=== PATIENT | male | born 1975 | race Caucasian/White ===

== ENCOUNTER 2018-02-02 11:03 | Emergency (ER) | payer MEDICAID ==
[~2018-02-02] VITALS: Ht 165.1 cm; Wt 72.0 kg
[~2018-02-02 11:03] MED LIST: CLON-528 PO; QUET-1 PO; QUET300T2 PO; QUET50TA PO
[2018-02-02 11:20] VITALS: BP 121/85
[2018-02-02] MEDS ORDERED: NAPR-56 PO (12:09)
== END 2018-02-02 12:42 | disposition home or self-care (01) ==
LOC: ER 11:05
DX: M25.552 Pain in left hip (principal); F15.90 Other stimulant use, unspecified, uncomplicated; Z88.5 Allergy status to narcotic agent; Z88.8 Allergy status to other drugs, medicaments and biological substances; Z98.890 Other specified postprocedural states
CPT/HCPCS: 99282

== ENCOUNTER 2019-02-26 06:48 | Emergency (ER) | payer MEDICAID ==
[~2019-02-26] VITALS: Ht 165.1 cm; Wt 65.8 kg
[2019-02-26 07:03] VITALS: BP 126/91
== END 2019-02-26 07:49 | disposition home or self-care (01) ==
LOC: ER 06:49
DX: R11.2 Nausea with vomiting, unspecified (principal); F31.9 Bipolar disorder, unspecified; F20.9 Schizophrenia, unspecified; F15.90 Other stimulant use, unspecified, uncomplicated; Z98.890 Other specified postprocedural states; Z88.8 Allergy status to other drugs, medicaments and biological substances; Z79.899 Other long term (current) drug therapy
CPT/HCPCS: 99281

== ENCOUNTER 2019-04-22 19:50 | Emergency (ER) | payer MEDICAID ==
[~2019-04-22] VITALS: Ht 167.6 cm; Wt 70.0 kg
[2019-04-22] MEDS ORDERED: haloperidol lactate 5mg/ml inj IM ONE (20:00)
[2019-04-22] MEDS ORDERED: LORazepam 2 mg/ml vial IM ONE (20:00)
[2019-04-22] MEDS ORDERED: diphenhydrAMINE 50 mg/ml inj IM ONE (20:00)
[2019-04-22] MEDS ORDERED: normal saline 1000ML IV soln IVB ONE ×2 (20:10→21:35)
--- NOTE | 2019-04-22 20:15 | NUR ---
PATIENT EXTREMELY AGITATED RAMBLING NONSENSE, YELLING, CURSING AND VERBALLY THREATENING ER STAFF AND LAW ENFORCEMENT WHO ARE AT BEDSIDE. PATIENT IS IN 4 POINT RESTRAINTS AND UNDER DIRECT SUPERVISION OF LAW ENFORCEMENT. HX OF BIPOLAR AND SCHIZOPHENIA.
[2019-04-22 20:47] LABS: BASOPHILS # (AUTO) 0.1 X10'3 (0-0.2); BASOPHILS % (AUTO) 0.7 % (0-1); EOSINOPHILS # (AUTO) 0.1 X10'3 (0-0.9); EOSINOPHILS % (AUTO) 0.7 % (0-6); HEMATOCRIT 42.6 % (42.0-52.0); LYMPHOCYTES % (AUTO) 21.2 % (21-51); MEAN CORPUSCULAR HEMOGLOBIN 32.4 PG (27.0-31.0); MEAN CORPUSCULAR HGB CONC 35.2 g/dL (33.0-36.5); MEAN CORPUSCULAR VOLUME 92.2 FL (78-98); MEAN PLATELET VOLUME 8.3 FL (7.4-10.4); MONOCYTES % (AUTO) 10.2 % (2-12); NEUTROPHILS # (AUTO) 6.4 X10'3 (1.8-7.7); NEUTROPHILS % (AUTO) 67.2 % (42-75); PLATELET COUNT 252 X10'3 (140-440); RED BLOOD COUNT 4.62 X10'6 (4.70-6.10); RED CELL DISTRIBUTION WIDTH 13.4 % (11.5-14.5); WHITE BLOOD COUNT 9.5 X10'3 (4.5-11.0)
--- NOTE | 2019-04-22 21:00 | NUR ---
PATIENT RESTING COMFORTABLY AT THIS TIME AFTER MEDICATION INTERVENTION. ER STAFF ABLE TO OBTAIN LAB DRAW, URINE AND CT SCAN PERFORMED. PATIENT UNDER DIRECT SUPERVISION OF LAW ENFORMENT
[2019-04-22 21:04] LABS: ALANINE AMINOTRANSFERASE 71 U/L (12-78); ALBUMIN 3.7 G/DL (3.4-5.0); ALBUMIN/GLOBULIN RATIO 1.1 (1.1-1.5); ALKALINE PHOSPHATASE 75 IU/L (46-116); ANION GAP 12 (8-16); ASPARTATE AMINO TRANSFERASE 43 U/L (10-37); BILIRUBIN,TOTAL 0.5 MG/DL (0.1-1.0); BLOOD UREA NITROGEN 14 MG/DL (7-18); BUN/CREATININE RATIO 10.9 (5.4-32.0); CALCIUM 8.5 MG/DL (8.5-10.1); CHLORIDE 105 MMOL/L (99-107); CREATININE 1.28 MG/DL (0.60-1.10); GLUCOSE 86 MG/DL (70-104); POTASSIUM 3.2 MMOL/L (3.5-5.1); SODIUM 142 MMOL/L (135-145); TOTAL CARBON DIOXIDE 24.8 MMOL/L (24-32); TOTAL PROTEIN 7.1 G/DL (6.4-8.2); eGFR 62 ML/MIN
[2019-04-22 21:13] LABS: CKMB RELATIVE INDEX 0.7 RATIO (0-2.5); CREATINE KINASE 525 U/L (39-308)
[2019-04-22] MEDS ORDERED: potassium Cl 20 mEq SR tablet PO STA (21:22)
[2019-04-22 22:06] LABS: URINE AMPHETAMINE SCREEN POSITIVE (Neg); URINE BARBITUATE SCREEN NEGATIVE (Neg); URINE BENZODIAZEPINES SCREEN NEGATIVE (Neg); URINE CANNABINOID SCREEN NEGATIVE (Neg); URINE COCAINE SCREEN NEGATIVE (Neg); URINE METHADONE SCREEN NEGATIVE (Neg); URINE OPIATE SCREEN NEGATIVE (Neg); URINE PHENCYCLIDINE SCREEN NEGATIVE (Neg)
--- NOTE | 2019-04-22 23:03 | NUR ---
[facility] ADMINISTRATION DELAYED PER MD WAITING FOR PATIENT TO BE ALERT ENOUGH TO TAKE ORAL MEDICATION
[2019-04-22 23:34] LABS: CLARITY,URINE CLEAR (Clear); COLOR,URINE YELLOW (Yellow); GLUCOSE, URINE NEGATIVE (Neg); KETONES,URINE NEGATIVE (Neg); LEUKOCYTE ESTERASE ,URINE NEGATIVE (Neg); NITRITES, URINE NEGATIVE (Neg); OCCULT BLOOD,URINE NEGATIVE (Neg); PH,URINE 5.5 (4.8-8.0); PROTEIN,URINE NEGATIVE (Neg); UA COLLECTION TYPE CLN CATCH MIDSTREAM; UROBILINOGEN,URINE 0.2 E.U/dL (0.2-1.0)
[2019-04-23 01:15] VITALS: BP 128/76
== END 2019-04-23 01:27 ==
LOC: ER 19:51
DX: F23 Brief psychotic disorder (principal); E87.6 Hypokalemia; F15.10 Other stimulant abuse, uncomplicated; F20.9 Schizophrenia, unspecified; F31.9 Bipolar disorder, unspecified; Z86.19 Personal history of other infectious and parasitic diseases; Z98.890 Other specified postprocedural states; Z88.8 Allergy status to other drugs, medicaments and biological substances; Z79.899 Other long term (current) drug therapy
CPT/HCPCS: 36415; 70450; 80053; 80305; 80320; 81003; 82550; 82553; 84443; 85025; 93005; 96372; 99284; J1200; J1630; J2060; J7030

== ENCOUNTER 2019-07-04 16:54 | Emergency (ER) | payer MEDICAID ==
[~2019-07-04] VITALS: Ht 165.1 cm; Wt 71.7 kg
[2019-07-04] MEDS ORDERED: iohexol 350MG/ML 100ml bottle IV ONE (17:09)
--- NOTE | 2019-07-04 17:22 | NUR ---
PT REURNED FROM CT, PT PLACED BACK ON MONITOR.
[2019-07-04 18:04] LABS: PARTIAL THROMBOPLASTIN TIME 27 SECONDS (22-32)
[2019-07-04 18:11] LABS: ALANINE AMINOTRANSFERASE 48 U/L (12-78); ALBUMIN 3.4 G/DL (3.4-5.0); ALBUMIN/GLOBULIN RATIO 1.2 (1.1-1.5); ALKALINE PHOSPHATASE 91 IU/L (46-116); ANION GAP 4 (8-16); ASPARTATE AMINO TRANSFERASE 20 U/L (10-37); BILIRUBIN,TOTAL 0.3 MG/DL (0.1-1.0); BLOOD UREA NITROGEN 11 MG/DL (7-18); CHLORIDE 98 MMOL/L (99-107); CREATININE 0.92 MG/DL (0.60-1.10); GLUCOSE 88 MG/DL (70-104); POTASSIUM 3.8 MMOL/L (3.5-5.1); SODIUM 132 MMOL/L (135-145); TOTAL CARBON DIOXIDE 29.8 MMOL/L (24-32); TOTAL PROTEIN 6.2 G/DL (6.4-8.2); eGFR > 90 ML/MIN
[2019-07-04 18:12] VITALS: BP 127/81
[2019-07-04 18:21] LABS: CREATINE KINASE 154 U/L (39-308)
--- NOTE | 2019-07-04 18:28 | NUR ---
PT OFF TRAUMA STATUS PER DR MONTANO.
[2019-07-04] MEDS ORDERED: ketorolac tromethamine 15mg/ml inj. IV ONE (18:30)
[2019-07-04] MEDS ORDERED: morphine 2 MG/ML inj. syringe IV PRN (18:30)
[2019-07-04] MEDS ORDERED: normal saline 1000ML IV soln IVB ONE (18:30)
[2019-07-04 18:32] LABS: BASOPHILS % (AUTO) 0.6 % (0-1); EOSINOPHILS % (AUTO) 0.3 % (0-6); HEMATOCRIT 37.1 % (42.0-52.0); HEMOGLOBIN 13.3 g/dl (14.0-17.9); LYMPHOCYTES # (AUTO) 1.3 X10'3 (1.1-4.8); LYMPHOCYTES % (AUTO) 19.1 % (21-51); MEAN CORPUSCULAR HEMOGLOBIN 32.1 PG (27.0-31.0); MEAN CORPUSCULAR HGB CONC 35.9 g/dL (33.0-36.5); MEAN CORPUSCULAR VOLUME 89.4 FL (78-98); MEAN PLATELET VOLUME 8.3 FL (7.4-10.4); MONOCYTES # (AUTO) 0.6 X10'3 (0-0.9); MONOCYTES % (AUTO) 8.5 % (2-12); NEUTROPHILS # (AUTO) 4.9 X10'3 (1.8-7.7); NEUTROPHILS % (AUTO) 71.5 % (42-75); PLATELET COUNT 202 X10'3 (140-440); RED BLOOD COUNT 4.14 X10'6 (4.70-6.10); RED CELL DISTRIBUTION WIDTH 13.3 % (11.5-14.5); WHITE BLOOD COUNT 6.9 X10'3 (4.5-11.0)
== END 2019-07-04 19:07 ==
LOC: ER 16:54
DX: T71.162A Asphyxiation due to hanging, intentional self-harm, initial encounter (principal); S10.93XA Contusion of unspecified part of neck, initial encounter; S00.83XA Contusion of other part of head, initial encounter; F31.9 Bipolar disorder, unspecified; F20.9 Schizophrenia, unspecified; F15.90 Other stimulant use, unspecified, uncomplicated; Z98.890 Other specified postprocedural states; Z86.19 Personal history of other infectious and parasitic diseases; Z88.8 Allergy status to other drugs, medicaments and biological substances; Z79.899 Other long term (current) drug therapy; X83.8XXA Intentional self-harm by other specified means, initial encounter; Y93.89 Activity, other specified; Y92.89 Other specified places as the place of occurrence of the external cause; Y99.8 Other external cause status
CPT/HCPCS: 36415; 70498; 80053; 82550; 83874; 85025; 85610; 85730; 96374; 96375; 99284; J1885; J2270; J7030; Q9967; 99291

== ENCOUNTER 2022-06-23 15:37 | Emergency (ER) | payer MEDICAID ==
[~2022-06-23] VITALS: Ht 165.1 cm; Wt 72.7 kg
[2022-06-23 15:45] VITALS: BP 130/81
== END 2022-06-23 19:37 | disposition left against medical advice (07) ==
LOC: ER 15:39
DX: J02.9 Acute pharyngitis, unspecified (principal); Z53.21 Procedure and treatment not carried out due to patient leaving prior to being seen by health care provider

== ENCOUNTER 2023-03-08 16:24 | Inpatient (IN) | payer MEDICAID ==
[~2023-03-08] VITALS: Ht 165.1 cm; Wt 71.1 kg
[~2023-03-08 16:24] MED LIST changes: -QUET300T2 PO
[2023-03-08] MEDS ORDERED: TETanus/Pertussis (Acell)/Diphther VAC/PF (Tdap-Adult) 0.5ml syringe IMVAC ONE (17:10)
[2023-03-08 17:59] LABS: BASOPHILS % (AUTO) 0.3 % (0-1); EOSINOPHILS % (AUTO) 0 % (0-6); HEMATOCRIT 37.5 % (42.0-52.0); HEMOGLOBIN 13.1 g/dl (14.0-17.9); LYMPHOCYTES # (AUTO) 1.2 X10'3 (1.1-4.8); LYMPHOCYTES % (AUTO) 8.3 % (21-51); MEAN CORPUSCULAR HEMOGLOBIN 30.7 PG (27.0-31.0); MEAN CORPUSCULAR HGB CONC 34.9 g/dL (33.0-36.5); MEAN CORPUSCULAR VOLUME 87.7 FL (78-98); MEAN PLATELET VOLUME 8.7 FL (7.4-10.4); MONOCYTES # (AUTO) 1.1 X10'3 (0-0.9); MONOCYTES % (AUTO) 7.7 % (2-12); NEUTROPHILS % (AUTO) 83.7 % (42-75); PLATELET COUNT 227 X10'3 (140-440); RED BLOOD COUNT 4.28 X10'6 (4.70-6.10); RED CELL DISTRIBUTION WIDTH 13.2 % (11.5-14.5); WHITE BLOOD COUNT 14.3 X10'3 (4.5-11.0)
[2023-03-08 18:06] LABS: ALANINE AMINOTRANSFERASE 23 U/L (12-78); ALBUMIN 3.5 G/DL (3.4-5.0); ALBUMIN/GLOBULIN RATIO 1.3 (1.1-1.5); ALKALINE PHOSPHATASE 68 IU/L (46-116); ANION GAP 8 (8-16); ASPARTATE AMINO TRANSFERASE 19 U/L (10-37); BILIRUBIN,TOTAL 0.5 MG/DL (0.1-1.0); BLOOD UREA NITROGEN 9 MG/DL (7-18); BUN/CREATININE RATIO 9.9 (10.0-20.0); CALCIUM 8.1 MG/DL (8.5-10.1); CHLORIDE 100 MMOL/L (99-107); CREATININE 0.91 MG/DL (0.60-1.10); ETHANOL < 10 MG/DL (<10); GLUCOSE 91 MG/DL (70-104); POTASSIUM 3.3 MMOL/L (3.5-5.1); SODIUM 133 MMOL/L (135-145); TOTAL CARBON DIOXIDE 25.1 MMOL/L (24-32); TOTAL PROTEIN 6.2 G/DL (6.4-8.2); eCRCL 89 ML/MIN; eGFR 90 ML/MIN
[2023-03-08 19:21] LABS: URINE AMPHETAMINE SCREEN NEGATIVE (Neg); URINE BARBITUATE SCREEN NEGATIVE (Neg); URINE BENZODIAZEPINES SCREEN POSITIVE (Neg); URINE CANNABINOID SCREEN NEGATIVE (Neg); URINE COCAINE SCREEN NEGATIVE (Neg); URINE METHADONE SCREEN NEGATIVE (Neg); URINE OPIATE SCREEN NEGATIVE (Neg); URINE PHENCYCLIDINE SCREEN NEGATIVE (Neg)
[2023-03-08] MEDS ORDERED: haloperidol lactate 5mg/ml inj IM ONE (21:30)
[2023-03-08] MEDS: normal saline 1000ml 1,000 ML IV SCH (21:30)
[2023-03-08] MEDS ORDERED: LIDOcaine 1% W/epiNEPHrine 1:200,000 10ml vial IJ ONE (22:20)
[2023-03-08] MEDS ORDERED: morphine 10mg/ml inj. IV ONE (22:25)
[2023-03-08] MEDS ORDERED: ondansetron/PF 4mg/2ml inj IV ONE (22:25)
[2023-03-08] MEDS ORDERED: LIDOcaine 1% W/epiNEPHrine 1:100,000 20ml vial IJ ONE (22:30)
--- NOTE | 2023-03-09 01:05 | NUR ---
Received pt from [facility], pt has hx of schizaffective. Pt has been hearing voices through his "car ventilation system" to harm himself. Pt put his hand through a window and received 26 davon, he also reported that he had been banging his head on the wall. Pt currently denies SI.
[2023-03-09] MEDS: normal saline 1000ml 1,000 ML IV SCH ×2 (01:30→05:30)
--- NOTE | 2023-03-09 02:50 | NUR ---
Pt irritated that he cannot fall asleep. Provider notified and orders received.
[2023-03-09] MEDS ORDERED: mirtazapine 15mg tablet PO ONE (03:00)
[2023-03-09] MEDS ORDERED: zolpidem 5mg tablet PO ONE (03:00)
[2023-03-09] MEDS ORDERED: OLANZapine 2.5MG tablet PO ONE (03:00)
[2023-03-09] MEDS ORDERED: olanzapine 10mg tablet PO ONE (03:10)
[2023-03-09 03:16] LABS: THYROID STIMULATING HORMONE 1.47 ulU/ml (0.34-4.50)
--- NOTE | 2023-03-09 03:47 | NUR ---
Packet faxed to [facility]
--- NOTE | 2023-03-09 06:31 | NUR ---
Patient sleeping supine. Respirations equal and nonlabored. No distress observed. Continue to monitor.
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
[2023-03-09] MEDS ORDERED: OLAN5TAB5 PO (07:59)
--- NOTE | 2023-03-09 08:30 | NUR ---
Patient receiving last dose of Ancef. Patient was calm and cooperative. No distress observed at this time. Continue to monitor.
[2023-03-09] MEDS: ceFAZolin/D5W- 1GM premix 50 ML IV SCH ×2 (08:33)
[2023-03-09] MEDS ORDERED: QUET300T2 PO (09:38)
--- NOTE | 2023-03-09 10:19 | NUR ---
Patient ambulatory, steady gait to BR. No distress observed. Continue to monitor.
--- NOTE | 2023-03-09 10:59 | NUR ---
Patient has his pit manager at bedside. No distress observed at this time. Continue to monitor.
--- NOTE | 2023-03-09 11:20 | NUR ---
OSMAR, Elinor, evaluating patient. No distress observed. Continue to monitor.
--- NOTE | 2023-03-09 12:20 | NUR ---
Patient has another member from his judaism visiting. No distress observed. continue to monitor.
--- NOTE | 2023-03-09 13:30 | NUR ---
Patient asked RN to remove his I.V. RN advised patient she would in a few minutes. Then another staff member walked into the room and RN and staff were working out a problem. Patient came out of his room and stating he was going to take out his own I.V. Heplock. RN advised him not to take it out. Patient then threatened to walk out and have somebody else remove his heplock. RN then removed his heplock. Patient attempting to up oning RN asking her if she has ever felt suicidal and complaining of his hard life. RN explained to patient you have no idea what other have been through so please don't maintenance technician them. Continue to monitor.
--- NOTE | 2023-03-09 14:05 | NUR ---
Patient appears to be sleeping. Respirations are equal and nonlabored. Continue to monitor.
[2023-03-09] MEDS ORDERED: ESZO2TAB31 PO (14:32)
[2023-03-09] MEDS ORDERED: MIRT-92 PO (14:32)
[2023-03-09] MEDS ORDERED: GABA300C PO (14:32)
--- NOTE | 2023-03-09 16:11 | NUR ---
Patient laying in bed. No distress observed. Continue to monitor.
[2023-03-09] MEDS ORDERED: magnesium hydroxide 30ml (MOM) UD suspension PO ONE (18:40)
[2023-03-09] MEDS: hydrOXYzine 25 MG tablet PO PRN (18:52)
--- NOTE | 2023-03-09 18:56 | NUR ---
Patient pacing and feeling very anxious. RN gave patient 50 mg Atarax. Patient declined T.V. Continue to monitor.
[2023-03-09] MEDS ORDERED: diphenhydrAMINE 50 mg/ml inj IM ONE (19:05)
[2023-03-09] MEDS ORDERED: haloperidol lactate 5mg/ml inj IM ONE (19:05)
[2023-03-09] MEDS ORDERED: LORazepam 2 mg/ml vial IM ONE (19:05)
--- NOTE | 2023-03-09 19:45 | NUR ---
0 Patient started banging his head against the wall over and over again placing large dents in the sheet rock. RN pulling patient away from the wall several times and called Security stat to ED OF. Patient also hit the wall with his hand. Patient was taken down by ED Staff in his own bed and patient was restrained. RN ran and got Dr. Sosa who saw patient and ordered I.M. B52. Security and ED staff at bedside. Patient is breathing fast and having an anxiety attack. RN fanned patient and Tech placed an ice pack on patient's forehead. Patient already had a red mckenzie on his forehead prior to hitting his head. Patient now has a large hematoma to forehead which is being iced. Patient's hands became numb due to him breathing so fast. RN did undo patient's right wrist restraint and then placed it back on not as tight. 1949 patient is past his anxiety attack and is now calm. Patient spoke to his mother on the phone for a couple of minutes. 1954 RN to remove bilateral leg restraints. Will continue to monitor.
--- NOTE | 2023-03-09 21:03 | NUR ---
Patient sleeping supine. Respirations equal and nonlabored. No distress observed. Continue to monitor.
[2023-03-09] MEDS: quetiapine fumarate ER 300mg tablet PO SCH (21:04)
[2023-03-09] MEDS: olanzapine 10mg tablet PO SCH (21:05)
[2023-03-09] MEDS: mirtazapine 15mg tablet PO SCH (21:05)
[2023-03-09] MEDS: gabapentin 300mg capsule PO SCH (21:05)
--- NOTE | 2023-03-09 23:09 | NUR ---
Patient sleeping supine. Respirations equal and nonlabored. No distress observed. Continue to monitor.
--- NOTE | 2023-03-10 01:17 | NUR ---
Patient sleeping on his left side. Respirations nonlabored. No distress observed. Continue to monitor.
--- NOTE | 2023-03-10 03:56 | NUR ---
Patient sleeping on his right side. Nonlabored respirations. No distress observed. Continue to monitor.
--- NOTE | 2023-03-10 05:26 | NUR ---
Patient continues to sleep supine. Respirations equal and nonlabored. No distress observed. Continue to monitor.
--- NOTE | 2023-03-10 06:30 | NUR ---
Pt is lying in bed on his back, he appears to be sleeping.
--- NOTE | 2023-03-10 08:03 | NUR ---
Autumn FERRO from [facility] called to ask how the patient is doing. She reports that she had seen him and made some med changes as Seroquel did not seem to be working. She started him on olanzapine. Autumn reports that the patient is very paranoid of law enforcement.
--- NOTE | 2023-03-10 08:30 | NUR ---
Pt did not wake up to eat his breakfast. Pt is currently sleeping on his back.
--- NOTE | 2023-03-10 10:05 | NUR ---
PT IS LAYING IN BED ASLEEP, PTS BREATHING EVEN, UNLABORED. NO NEEDS AT THIS TIME.
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
--- NOTE | 2023-03-10 12:59 | NUR ---
Pt is awake and sitting up. Pt declined meatloaf and mashed potatoes on lunch tray. Pt ate his yogurt. Pt is paranoid. Pt asked if we had anymore food that is sealed. Pt provided with jello, applesauce and more sealed snacks.
--- NOTE | 2023-03-10 13:21 | NUR ---
PT IS IN BED ASLEEP.
--- NOTE | 2023-03-10 14:06 | NUR ---
Anabelal from the [facility] office called to report that pt has been accepted upstairs on [facility].
--- NOTE | 2023-03-10 15:45 | NUR ---
Pt transferred upstairs to [facility] via w/c accompanied by [facility] discharge door operator and security, all belongings sent with the patient.
[2023-03-10] MEDS ORDERED: loperamide 2mg capsule PO PRN (16:00)
[2023-03-10] MEDS ORDERED: acetaminophen 325mg tablet PO PRN ×2 (16:00)
[2023-03-10] MEDS ORDERED: mag hydrox/Alum hydrox/simeth 30ml oral suspension PO PRN (16:00)
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
[2023-03-10 16:20] VITALS: BP 117/91; PULSE 112; RESP 16; TEMP 98.6; O2SAT 97
[2023-03-10 16:45] VITALS: RESP 18; O2SAT 97
[2023-03-10 19:00] VITALS: BP 124/92; PULSE 84; RESP 18; TEMP 98.4; O2SAT 95
[2023-03-10] MEDS: hydrOXYzine 25 MG tablet PO PRN (19:08)
[2023-03-10] MEDS ORDERED: OLANZapine **IM** 10 mg inj. IM ONE (19:21)
[2023-03-10] MEDS: gabapentin 300mg capsule PO SCH (19:57)
[2023-03-10] MEDS: olanzapine 10mg tablet PO SCH (19:58)
[2023-03-10] MEDS: quetiapine fumarate ER 300mg tablet PO SCH (19:58)
[2023-03-10] MEDS: mirtazapine 15mg tablet PO SCH (19:58)
[2023-03-10] MEDS ORDERED: zolpidem 5mg tablet PO SCH (21:00)
--- NOTE | 2023-03-11 00:11 | NUR ---
Nursing Progress Note: Problem: Pt admitted to [facility] for Behavioral health today on 5150 for DTS from our ER. Pt reported suicidal ideation , punched hands through a window, and hit his head against a refrigerator. Pt has lacerations with 28 davon present on his right forearm, area was cleaned with normal saline, Xeroform and non adherent dressing placed, and wrapped with gauze. Pictures were obtained and placed in pt's chart and a wound care consult was placed per KASIE Uribe. Pt. also has a bruise in the middle of his forehead. Pt reports worsening voices the past 10-12 weeks in which he is actively trying to make stop. Although he does not want to harm himself, "I understand why people with voices kill themselves; to make it stop." He is seeking help. Pt has history of PTSD, schizophrenia, bipolar and antisocial personality disorder. Interventions: Maintained a safe and supportive environment, provided clear and simple instructions, attempted to orient to reality, provided active listening and positive encouragement, encouraged participation on the unit, and maintained Q 15min safety checks. Response: Patient is pleasant but impulsive behavior presented; patient c/o anxiety and was provided PRN Atarax. About 15mins later patient approached CRN and explained he wanted to harm himself; he required staff to physically intervene to prevent him from hitting himself or hitting his head. He continuously repeated "I just want to bash my fucking head in." KASIE Clay notified and Zyprexa 10mg IM provided. Patient reported constant AH and he only wants to cause harm to himself to get the voices to stop. Staff stayed with the patient until he was able to relax; his wound DSG was changed by CRN d/t the DSG falling off. Patient observed sleeping and does not appear to be having difficulty. Plan: Patient requires interruption of current crisis and possible medication adjustment in a safe and therapeutic environment.
[2023-03-11 07:00] VITALS: RESP 16; O2SAT 98
[2023-03-11 07:53] VITALS: BP 118/78; PULSE 90; RESP 12; TEMP 98.4; O2SAT 95
--- NOTE | 2023-03-11 12:21 | NUR ---
PRESSURE ULCER EDUCATION: DEFINITION: A pressure ulcer is an area of skin that breaks down when you stay in one position too long. The constant pressure against the skin reduces the blood flow to that area and the affected tissue dies. CAUSES: "Being bedridden or in a wheelchair "Fragile skin "Having a chronic condition, such as diabetes or vascular disease "Inability to move certain parts of your body without assistance "Older age "Incontinence of urine or stool SYMPTOMS: "A reddened area that DOES NOT turn white when pressed on - this can be the beginning of a pressure ulcer "A blister, deep sore or a crater - these can be advanced pressure ulcers FIRST AID: "Relieve the pressure on this area "Keep the area clean and dry "Call your primary doctor if you see any of the above symptoms "DO NOT massage the area "DO NOT use a donut shaped or ring shaped pillow- these actually interfere with the blood flow and cause complications PREVENTION: "Check for pressure ulcers everyday "Change position at least every two hours to relieve pressure "Use items that help relieve pressure- pillows, sheepskin, foam padding, and powders. "Keep skin clean and dry "Eat healthy well balanced meals "Exercise daily IF YOU SEE ANY OF THESE SYMPTOMS WHILE IN THE HOSPITAL - TELL YOUR NURSE IMMEDIATELY. IF YOU SEE ANY OF THESE SYMPTOMS WHILE AT HOME OR HAVE ANY QUESTIONS OR CONCERNS ABOUT PRESSURE ULCERS - CALL YOUR PRIMARY DOCTOR IMMEDIATELY. Addendum: 03/11/23 at 1222 by Lisa Calhoun RN Amended: Links added.
[2023-03-11] MEDS ORDERED: olanzapine 10mg tablet PO STA (12:22)
[2023-03-11] MEDS: magnesium hydroxide 30ml (MOM) UD suspension PO PRN (12:29)
[2023-03-11 14:10] LABS: BASOPHILS % (AUTO) 0.5 % (0-1); EOSINOPHILS % (AUTO) 0.6 % (0-6); HEMATOCRIT 43.1 % (42.0-52.0); HEMOGLOBIN 15.2 g/dl (14.0-17.9); LYMPHOCYTES # (AUTO) 1.5 X10'3 (1.1-4.8); LYMPHOCYTES % (AUTO) 18.9 % (21-51); MEAN CORPUSCULAR HEMOGLOBIN 30.9 PG (27.0-31.0); MEAN CORPUSCULAR HGB CONC 35.3 g/dL (33.0-36.5); MEAN CORPUSCULAR VOLUME 87.6 FL (78-98); MEAN PLATELET VOLUME 8.5 FL (7.4-10.4); MONOCYTES # (AUTO) 0.7 X10'3 (0-0.9); MONOCYTES % (AUTO) 9.5 % (2-12); NEUTROPHILS # (AUTO) 5.5 X10'3 (1.8-7.7); NEUTROPHILS % (AUTO) 70.5 % (42-75); PLATELET COUNT 227 X10'3 (140-440); RED BLOOD COUNT 4.92 X10'6 (4.70-6.10); RED CELL DISTRIBUTION WIDTH 13.1 % (11.5-14.5); WHITE BLOOD COUNT 7.8 X10'3 (4.5-11.0)
[2023-03-11 14:42] LABS: ALBUMIN 3.4 G/DL (3.4-5.0); ANION GAP 10 (8-16); BLOOD UREA NITROGEN 20 MG/DL (7-18); BUN/CREATININE RATIO 17.2 (10.0-20.0); CALCIUM 9.1 MG/DL (8.5-10.1); CHLORIDE 105 MMOL/L (99-107); CREATININE 1.16 MG/DL (0.60-1.10); GLUCOSE 126 MG/DL (70-104); POTASSIUM 3.9 MMOL/L (3.5-5.1); SODIUM 143 MMOL/L (135-145); TOTAL CARBON DIOXIDE 28.5 MMOL/L (24-32); eCRCL 70 ML/MIN; eGFR 68 ML/MIN
[2023-03-11] MEDS: hydrOXYzine 25 MG tablet PO PRN (15:56)
[2023-03-11] MEDS ORDERED: LORazepam 2 mg/ml vial ONE (16:06)
[2023-03-11] MEDS ORDERED: haloperidol lactate 5mg/ml inj ONE (16:07)
[2023-03-11] MEDS ORDERED: diphenhydrAMINE 50 mg/ml inj ONE (16:08)
--- NOTE | 2023-03-11 17:32 | NUR ---
Malnutrition consult: Pt admit for suicidal behavior with attempted self injury and a hx of multiple suicide attempt of which two prior attempts resulted in required life support per H&P. Per RN malnutrition screen pt reports 14-23 pound weight loss and a decreased PO intake/ appetite. Scaled wt this admit of 68kg (150 pounds) and only reliable scaled wt hx in EMR of 71.66kg (158 pounds) on 07/05/19 indicate about 8 pound wt loss in 5 years though not not clear due to missing reliable information. Unable to talk to RN, even though attempt was made to obtain information on pt's appearance. Pt does not have edema nor weakness. Pt is currently on a regular diet with prepackage food only request and bottled water; communicated with dietary. PO intake ~16%x 3 meals including two refusals (noted not package meals); notified dietary. Due to no significant wt loss indicated in EMR, no edema, and no weakness pt does not meet a minimum of two malnutrition criteria at this time. Will continue to monitor for signs of malnutrition. Addendum: 03/11/23 at [address] Amended: Links added.
--- NOTE | 2023-03-11 17:43 | NUR ---
Nursing Progress Note: Problem: Pt admitted to [facility] for [facility] health today on 5150 for DTS from our ER. Pt reported suicidal ideation, punched hands through a window, and hit his head against a refrigerator. Pt has lacerations with 28 davon present on his right forearm, area was cleaned with normal saline, Xeroform and non-adherent dressing placed, and wrapped with gauze. Pictures were obtained and placed in pt.s chart and a wound care consult was placed per KASIE Uribe. Pt. also has a bruise in the middle of his forehead. Pt reports worsening voices the past 10-12 weeks in which he is actively trying to make stop. Although he does not want to harm himself, "I understand why people with voices kill themselves; to make it stop." He is seeking help. Pt has history of PTSD, schizophrenia, bipolar and antisocial personality disorder. Interventions: Maintained a safe and supportive environment, provided clear and simple instructions, attempted to orient to reality, provided active listening and positive encouragement, encouraged participation on the unit, and maintained Q 15min safety checks. Response: Patient sleeping in bed at change of shift. Patient does not get up and eat breakfast. He states that he just wants to . Patient later stated that he did not want to get up for lunch, because if he gets up he will want to bang his head against the wall. Patient refused lunch as it was not a boxed lunch. RN brought patient snacks and bottled water for which he was pleased. Patient reports having his food mixed with medications in the not too distant past, so he is paranoid about his food. Patient was given Zyprexa 10 mg p.o. in late morning and went to sleep. Patient awakened and wanted medication for anxiety. Atarax 50 mg was given prn. Texted KASIE Clay that I needed more meds, when patient started banging his head against the wall. RN took him away from wall and attempted to hold him and comfort patient. Security was paged and came and assisted in calming patient. Haldol 10 mg, Ativan 2 mg and Benadryl 50 mg IM. Patient was taken back to his room where he was deep breathing and attempting to calm down. Patient had psychomotor agitation and his legs were constantly moving during this whole event. Patient kept saying I have to get up and bang my head. Patient has about a quarter sized reddened area that was bleeding during self-injurious behaviors. Patient states that he is tired of living like this with the voices and them telling him to kill himself. Patient reports that he is a Jehovahs Witness and talks about this during 1:1. RN sat with patient for approximately one hour until he was calling his mother on the phone, and was calm. Patient has helmet in his room on shelf if he should need it again. Patient remained pleasant throughout the day, is medication compliant. Patient was given MOM and prune juice for constipation x 4 days. Plan: Patient requires interruption of current crisis and possible medication adjustment in a safe and therapeutic environment.
[2023-03-11 19:17] VITALS: BP 105/65; PULSE 80; RESP 14; TEMP 98.1; O2SAT 98
[2023-03-11] MEDS: gabapentin 300mg capsule PO SCH (20:04)
[2023-03-11] MEDS: olanzapine 10mg tablet PO SCH (20:04)
[2023-03-11] MEDS: mirtazapine 15mg tablet PO SCH (20:04)
[2023-03-11] MEDS: quetiapine fumarate ER 300mg tablet PO SCH (20:04)
--- NOTE | 2023-03-12 01:21 | NUR ---
Nursing Progress Note: Problem: Pt admitted to [facility] for [facility] health today on 5150 for DTS from our ER. Pt reported suicidal ideation , punched hands through a window, and hit his head against a refrigerator. Pt has lacerations with 28 davon present on his right forearm, area was cleaned with normal saline, Xeroform and non adherent dressing placed, and wrapped with gauze. Pictures were obtained and placed in pt's chart and a wound care consult was placed per KASIE Uribe. Pt. also has a bruise in the middle of his forehead. Pt reports worsening voices the past 10-12 weeks in which he is actively trying to make stop. Although he does not want to harm himself, "I understand why people with voices kill themselves; to make it stop." He is seeking help. Pt has history of PTSD, schizophrenia, bipolar and antisocial personality disorder. Interventions: Maintained a safe and supportive environment, provided clear and simple instructions, attempted to orient to reality, provided active listening and positive encouragement, encouraged participation on the unit, and maintained Q 15min safety checks. Response: Patient is pleasant and cooperative with care; compliant with medication. Patient continues to express AH that want him to cause harm to himself; he describes his voice as constantly tormenting him. Patient self-isolated to his room and no self-harm events this shift. Wound DSGs to RFA and forehead CDI. Patient was provided packaged drinks and snacks prior to bed; observed sleeping and does not appear to be having difficulty. Plan: Patient requires interruption of current crisis and possible medication adjustment in a safe and therapeutic environment.
--- NOTE | 2023-03-12 02:45 | NUR ---
TOBACCO DRYING MACHINE OPERATOR documentation: I have reviewed all interventions, assessments performed and documented by Daisy ANGULO.
[2023-03-12 07:00] VITALS: BP 123/64; PULSE 92; RESP 16; TEMP 98.3; O2SAT 94
[2023-03-12] MEDS ORDERED: olanzapine 10mg tablet PO SCH (08:00)
[2023-03-12] MEDS: olanzapine 10mg tablet PO SCH ×3 (08:03→18:15)
--- NOTE | 2023-03-12 12:21 | NUR ---
TC to RN with recommendation for Ensure Enlive TID given poor acceptance of food and pt requesting prepackaged foods. Order pending at this time. Per RN pt likes Bran and bananas, d/w dietary. RN encouraged to inform RD of any pt preferences that can be honored in hopes of optimizing PO intake. Noted LBM 03/07 per EMR. Pt with PRN MoM only given 03/11 per EMR and started on routine Miralax HS today. Pt to begin receiving power pudding WB as well. Will continue to follow closely and make recommendations as appropriate. Recommendations: 1) Continue regular diet; prepackaged foods per diet order 2) Ensure Enlive TID, d/w RN 03/12 3) Encourage PO intake and honor food preferences as able 4) Routine and PRN bowel care; power pudding WB 5) Weekly scaled weight Addendum: 03/12/23 at [address] Amended: Links added.
[2023-03-12] MEDS ORDERED: polyethylene glycol 3350 17gm powd pack PO ONE (12:25)
[2023-03-12] MEDS: lactose-reduced food (Ensure Enlive) - 237ml bottle PO SCH ×2 (13:00→18:15)
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
[2023-03-12 18:15] LABS: HBSAG SCREEN Negative (Negative); HEP B CORE AB, IGM Negative (Negative); HEP B CORE AB, TOT Negative (Negative)
[2023-03-12] MEDS: magnesium hydroxide 30ml (MOM) UD suspension PO PRN (18:15)
[2023-03-12] MEDS ORDERED: LORazepam 1 MG tablet PO STA (18:40)
[2023-03-12] MEDS: hydrOXYzine 25 MG tablet PO PRN (18:41)
[2023-03-12 19:33] VITALS: BP 122/85; PULSE 77; RESP 19; TEMP 97; O2SAT 97
[2023-03-12] MEDS: quetiapine fumarate ER 300mg tablet PO SCH (21:21)
[2023-03-12] MEDS: gabapentin 300mg capsule PO SCH (21:21)
[2023-03-12] MEDS: polyethylene glycol 3350 17gm powd pack PO SCH (21:21)
[2023-03-12] MEDS: OLANZAPINE 5 MG TABLET PO SCH (21:21)
[2023-03-12] MEDS: mirtazapine 15mg tablet PO SCH (21:21)
--- NOTE | 2023-03-13 04:38 | NUR ---
Nursing Progress Note: Problem: Pt admitted to [facility] for [facility] health today on 5150 for DTS from our ER. Pt reported suicidal ideation , punched hands through a window, and hit his head against a refrigerator. Pt has lacerations with 28 davon present on his right forearm, area was cleaned with normal saline, Xeroform and non adherent dressing placed, and wrapped with gauze. Pictures were obtained and placed in pt's chart and a wound care consult was placed per KASIE Uribe. Pt. also has a bruise in the middle of his forehead. Pt reports worsening voices the past 10-12 weeks in which he is actively trying to make stop. Although he does not want to harm himself, "I understand why people with voices kill themselves; to make it stop." He is seeking help. Pt has history of PTSD, schizophrenia, bipolar and antisocial personality disorder. Interventions: Maintained a safe and supportive environment, provided clear and simple instructions, attempted to orient to reality, provided active listening and positive encouragement, encouraged participation on the unit, and maintained Q 15min safety checks. Response: Patient is pleasant and cooperative with care; compliant with medication. PRN Atarax and Ativan were provided for anxiety. Patient continues to express CAH, SI and paranoia; he was able to contract for safety this shift by asking staff for help when he had feelings for self-harming. Patient's wound DSG to RFA was changed this shift; wound appeared well approximated with minimal drainage noted. No s/s of infection and [address] Patient briefly walked out in the hallway and talked on the phone with his mom this shift. He was provided HS snack prior to shift; observed sleeping and does not appear to be having difficulty. Plan: Patient requires interruption of current crisis and possible medication adjustment in a safe and therapeutic environment.
--- NOTE | 2023-03-13 04:55 | NUR ---
FARM WORKER documentation: I have reviewed all interventions, assessments performed and documented by Daisy ANGULO
[2023-03-13 07:00] VITALS: RESP 16; O2SAT 94
[2023-03-13 08:00] VITALS: BP 105/69; PULSE 87; RESP 16; TEMP 97.6; O2SAT 98
[2023-03-13] MEDS: lactose-reduced food (Ensure Enlive) - 237ml bottle PO SCH ×3 (08:00→18:00)
[2023-03-13] MEDS: olanzapine 10mg tablet PO SCH ×3 (09:15→18:04)
[2023-03-13] MEDS: docusate sod 100mg capsule PO PRN (12:42)
[2023-03-13] MEDS: magnesium hydroxide 30ml (MOM) UD suspension PO PRN (12:42)
--- NOTE | 2023-03-13 17:49 | NUR ---
Nursing Progress Note: Problem: Pt admitted to [facility] today on 5150 for DTS from our ER. Pt reported suicidal ideation, punched hands through a window, and hit his head against a refrigerator. Pt has lacerations with 28 davon present on his right forearm, area was cleaned with normal saline, Xeroform and non-adherent dressing placed, and wrapped with gauze. Pictures were obtained and placed in pt.s chart and a wound care consult was placed per KASIE Uribe. Pt. also has a bruise in the middle of his forehead. Pt reports worsening voices the past 10-12 weeks in which he is actively trying to make stop. Although he does not want to harm himself, "I understand why people with voices kill themselves; to make it stop." He is seeking help. Pt has history of PTSD, schizophrenia, bipolar and antisocial personality disorder. Interventions: Maintained a safe and supportive environment, provided clear and simple instructions, attempted to orient to reality, provided active listening and positive encouragement, encouraged participation on the unit, and maintained Q 15min safety checks. Response: Patient sleeping in bed at change of shift. He declined breakfast and lunch today, but was compliant with medications. He reported that he just wasnt hungry, but hes got paranoia about food right now. 1:1 at bedside later in the afternoon. Patient says that the Zyprexa has really helped and the voices are better, Im not feeling like bashing my head in right now. Im in a good place with my life right now. Not doing crazy stupid stuff anymore. Its just these damn commands in my head. Hes isolated to his room today. Patient is pleasant and cooperative. Still no BM. New order for Colace 100mg BID which was given along with MOM. Patients wound left open to air today per his request. Plan: Patient requires interruption of current crisis and possible medication adjustment in a safe and therapeutic environment.
[2023-03-13 19:00] VITALS: RESP 14; O2SAT 97
[2023-03-13 19:30] LABS: LORAZEPAM (ATIVAN) <10 ng/mL (50 - 240)
[2023-03-13 20:00] VITALS: BP 123/88; PULSE 87; RESP 14; TEMP 97.8; O2SAT 97
[2023-03-13] MEDS: polyethylene glycol 3350 17gm powd pack PO SCH (20:10)
[2023-03-13] MEDS: gabapentin 300mg capsule PO SCH (20:11)
[2023-03-13] MEDS: mirtazapine 15mg tablet PO SCH (20:11)
[2023-03-13] MEDS: quetiapine fumarate ER 300mg tablet PO SCH (20:11)
[2023-03-13] MEDS: OLANZAPINE 5 MG TABLET PO SCH (20:12)
--- NOTE | 2023-03-14 04:31 | NUR ---
Nursing Progress Note: Delfino Problem: Pt admitted to [facility] today on 5150 for DTS from our ER. Pt reported suicidal ideation, punched hands through a window, and hit his head against a refrigerator. Pt has lacerations with 28 davon present on his right forearm, area was cleaned with normal saline, Xeroform and non-adherent dressing placed, and wrapped with gauze. Pictures were obtained and placed in pt.s chart and a wound care consult was placed per KASIE Uribe. Pt. also has a bruise in the middle of his forehead. Pt reports worsening voices the past 10-12 weeks in which he is actively trying to make stop. Although he does not want to harm himself, "I understand why people with voices kill themselves; to make it stop." He is seeking help. Pt has history of PTSD, schizophrenia, bipolar and antisocial personality disorder. Interventions: Maintained a safe and supportive environment, provided clear and simple instructions, attempted to orient to reality, provided active listening and positive encouragement, encouraged participation on the unit, and maintained Q 15min safety checks. Response: Upon shift patient was observed in room sitting on bedside. During 1:1, patient admits to hearing voices but states they are very subtle and not like they use to be. Patient admits to wanting to go to sleep forever, when feeling down. Patient denies going in to TV room due to being anti-social and isolating self. Patient only socializes with friends and family. Patient states his plan is to stay where he has been stay but doesnt want to be like this or hurt anyone. Patient received shower this shift. Patient c/o constipation, this nurse notified MD and MD ordered mag citrate for tomorrow 03/14 @ 1100 due to patient having visitors before then. Patient continues to be paranoid about drinking/eating anything that is not sealed. Patient states its not personal, please dont be upset I dont trust the government. Patient currently in bed with eyes closed. No obvious distress to note. Plan: Patient requires interruption of current crisis and possible medication adjustment in a safe and therapeutic environment.
[2023-03-14 07:00] VITALS: RESP 16; O2SAT 94
[2023-03-14 08:00] VITALS: BP 111/75; PULSE 70; RESP 12; TEMP 97.5; O2SAT 99
[2023-03-14] MEDS: lactose-reduced food (Ensure Enlive) - 237ml bottle PO SCH ×3 (08:00→18:00)
[2023-03-14] MEDS: olanzapine 10mg tablet PO SCH ×3 (09:53→16:54)
[2023-03-14] MEDS ORDERED: magnesium citrate 296ml oral solution PO ONE (11:00)
[2023-03-14] MEDS: magnesium hydroxide 30ml (MOM) UD suspension PO PRN (13:24)
[2023-03-14] MEDS: hydrOXYzine 25 MG tablet PO PRN (15:12)
[2023-03-14] MEDS ORDERED: QUEtiapine 25mg tablet PO STA (15:28)
[2023-03-14] MEDS ORDERED: LORazepam 1 MG tablet PO ONE (15:30)
--- NOTE | 2023-03-14 15:30 | NUR ---
S/R Initiation (Y=yes; N=no) Date Seclusion/Behavioral Restraint Episode Began:[03/14/23] Time Seclusion/Behavioral Restraint Episode Began:[1530] Type of Restraint(Document Y for the type utilized) mechanical-4 point:[Y] physical hold:[Y] seclusion:[] Behavior Necessitating Behavioral Restraint/Seclusion(Document Y for DTS and/or DTO). Danger to self:[Y] Danger to others:[] Alternatives Attempted(Document Y for the alternatives attempted). Decrease stimuli:[] Diversional activities:[] Verbal limit setting:[] Medication:[Y] Reality orientation:[] Show of support:[Y] Problem solving:[] De-escalation:[] Food and fluids:[Y] Increased observation:[] Other:[] Behavioral Description(narrative of circumstances that led to use of S/R):[At 1512 pt given Atarax 50mg PRN for anxiety. This nurse observed pt stomping feet and pacing back and forth. Notified KASIE Martinez. At 1520 Michelle, assessed pt and ordered Seroquel 50mg with Ativan 2mg PO. This nurse immediately began putting in the orders and while putting in the orders a loud nurse was heard. This nurse observed the pt with his head in the wall near room #329. Staff then assisted pt to the observation room where he continued to violently slam his head onto the bed, and swing his legs while screaming and yelling. ] Medications Given:(medication name/time/route/location/effectiveness):[Haldol 10mg, with Ativan 2mg IM] Patient Injuries Y/N(if Y,describe/actions taken/outcome):[Y pt head bleeding from when he slammed his head into the wall] Notifications. Provider/Guardian/conservator/Family/other/No one identified by patient to be notified:[Y KASIE Garnett notified and was present on the unit. He stayed with staff throughout the process of restraints and administration of IM medications. ] Education. Education Topic for Seclusion and Behavioral Restraint(must educate each element and Document Y) Hospital policy:[y] Reason for seclusion or restraint:[DTS] Bx necessary for release:[Contract for safety] Monitoring of patient/behavior:[1:1 LOS] Individual Taught(Document Y for individuals taught). Patient:[Y] Family:[] Significant other:[] Barriers to Learning(Document Y for the barrier(s)identified). None Identified:[Y] Emotional Barriers:[] Inability to Read:[] Jainism Practices:[] Cognitive Impairment:[] Lack of Motivation:[] Language Barriers:[] Hearing:[] Cultural Practice:[] Other:[] Teaching Method(Document Y for the method(s)utilized). Verbal:[Y] Audio/Visual:[] Handouts:[] Demonstration:[] Other:[] Teaching Evaluation(Document Y for which response is applicable to patient). Verbalizes Understanding:[Y] Needs Further Teaching:[] Returns Demonstration:[] Needs Reinforcement:[] Needs Practice:[] Needs Supervision:[]
[2023-03-14] MEDS ORDERED: LORazepam 2 mg/ml vial ONE (15:38)
[2023-03-14] MEDS ORDERED: haloperidol lactate 5mg/ml inj ONE (15:39)
--- NOTE | 2023-03-14 15:50 | NUR ---
VS Bp 149/95, HR 115, RR 20, Sats 99% RA. 1658 VS Bp 133/90, HR 95, 95% RA
--- NOTE | 2023-03-14 17:15 | NUR ---
S/R Debrief (Y=yes; N=no) Date of Seclusion/Behavioral Restraint Episode:[03/14/23] Time of Seclusion/Behavioral Restraint Episode:[1543] Date of Patient Debrief:[03/14/23] Time of Patient Debrief:[1552] Patient Attended Debrief (if N then comment why)[N Asked to shower and go to sleep] Debrief Info in patient words if possible (not necessary if pt. did not attend debrief) What led to the episode:[Pt reports A/H] How could patient have handled things differently:[He requested PRN and the nurse gave him what was available as a PRN] How could staff have handled things differently:[Charge nurse had patients; this was the charge nurses pt. The pt could have been taken to a quiet place and time spent de-escalating after the Atarax was given. ] Patient Perception of Episode:[] Physical Well-Being-(Y/N) Intact:[N injury to pt's head] Altered:[] Comment if altered:[] Psychological/Emotional Comfort-(Y/N) Intact:[] Altered:[] Comment if altered:[] Right to Privacy- (Y/N) Intact:[] Altered:[] Comment if altered:[] Trauma Experienced- (Y/N) Intact:[] Altered:[] Comment if altered:[]
--- NOTE | 2023-03-14 17:32 | NUR ---
S/R Discontinuation (Y=yes; N=no) Criteria for Release from Seclusion/Behavioral Restraint.(Y/N) Contracts for Safety:[Y] No Longer Danger to Others:[] No Longer Danger to Self:[Y] Behavioral Description(narrative):[Pt is calm and cooperative.] Initiation Date of Seclusion/Behavioral Restraint Episode:[1530 behavioral restraint escorted to observation room] Initiation Time of Seclusion/Behavioral Restraint Episode:[1543 mechanical restraints] Discontinuation Date of Seclusion/Behavioral Restraint Episode:[1543 behavioral restraint] Discontinuation Time of Seclusion/Behavioral Restraint Episode:[1725 mechanical restraints; pt able to contract for safety. He is calm and cooperative.]
[2023-03-14 20:00] VITALS: BP 124/80; PULSE 57; RESP 19; TEMP 97.9; O2SAT 96
[2023-03-14] MEDS: OLANZAPINE 5 MG TABLET PO SCH (20:27)
[2023-03-14] MEDS: quetiapine fumarate ER 300mg tablet PO SCH (20:27)
[2023-03-14] MEDS: LORazepam 1 MG tablet PO SCH (20:27)
[2023-03-14] MEDS: polyethylene glycol 3350 17gm powd pack PO SCH (20:27)
[2023-03-14] MEDS: gabapentin 300mg capsule PO SCH (20:27)
[2023-03-14] MEDS: mirtazapine 15mg tablet PO SCH (20:27)
--- NOTE | 2023-03-15 01:21 | NUR ---
Nursing Progress Note: Delfino Problem: Pt admitted to [facility] today on 5150 for DTS from our ER. Pt reported suicidal ideation, punched hands through a window, and hit his head against a refrigerator. Pt has lacerations with 28 davon present on his right forearm, area was cleaned with normal saline, Xeroform and non-adherent dressing placed, and wrapped with gauze. Pictures were obtained and placed in pt.s chart and a wound care consult was placed per KASIE Uribe. Pt. also has a bruise in the middle of his forehead. Pt reports worsening voices the past 10-12 weeks in which he is actively trying to make stop. Although he does not want to harm himself, "I understand why people with voices kill themselves; to make it stop." He is seeking help. Pt has history of PTSD, schizophrenia, bipolar and antisocial personality disorder. Interventions: Maintained a safe and supportive environment, provided clear and simple instructions, attempted to orient to reality, provided active listening and positive encouragement, encouraged participation on the unit, and maintained Q 15min safety checks. Response: Pt LOS for DTS. Sitter at bedside. Pt resting in bed eating a snack. 1:1 assessment done at bedside. Pt refused BMP lab draw, ordered for tomorrow morning. He denies SI and AH but states he misses his family very much. Pt contracted for safety during this shift. PT tolerated wound care, saline rinse, xeroform applied and Keflex wrap applied. Wound is CDI, no drainage noted. Pt up for snacks and took all HS medications without issue. PT currently sleeping, will continue to monitor. Plan: Patient requires interruption of current crisis and possible medication adjustment in a safe and therapeutic environment.
[2023-03-15] MEDS: LORazepam 1 MG tablet PO SCH ×4 (02:00→20:14)
[2023-03-15] MEDS: hydrOXYzine 25 MG tablet PO PRN (07:25)
[2023-03-15] MEDS: olanzapine 10mg tablet PO SCH ×4 (07:25→17:48)
[2023-03-15 07:55] VITALS: RESP 14
[2023-03-15] MEDS: lactose-reduced food (Ensure Enlive) - 237ml bottle PO SCH ×3 (08:00→17:48)
[2023-03-15 08:15] LABS: ALBUMIN 3.2 G/DL (3.4-5.0); ANION GAP 6 (8-16); BLOOD UREA NITROGEN 18 MG/DL (7-18); BUN/CREATININE RATIO 17.6 (10.0-20.0); CALCIUM 9.1 MG/DL (8.5-10.1); CHLORIDE 106 MMOL/L (99-107); CREATININE 1.02 MG/DL (0.60-1.10); GLUCOSE 106 MG/DL (70-104); POTASSIUM 3.7 MMOL/L (3.5-5.1); SODIUM 141 MMOL/L (135-145); TOTAL CARBON DIOXIDE 29.3 MMOL/L (24-32); eCRCL 80 ML/MIN; eGFR 79 ML/MIN
--- NOTE | 2023-03-15 09:56 | NUR ---
Initial: Pt admit SX schizophrenia and SI per EMR. PO ~28% avg regular diet w/ frequent refusals receiving Ensure Enlive ~71% past 2.5 days per EMR. Noted power pudding daily in diet order however pt w/ gluten allergy in EMR. RN reports pt not eating initial power pudding sent; cannot send since contains gluten-dietary notified. RN reports pt AH persists requiring pre-packaged foods only however this is difficult w/ current reported allergens list. RN unsure of allergen accuracy or pt ability to accurately report allergens currently. RD d/w dietary will continue send normal meals w/ pre-packaged items when able otherwise food place in individual containers. With ONS pt current intake is meeting protein and ~85% kcal estimated needs. LBM / per EMR. Will monitor for further PO trends and nutrition intervention needs this admit. Rec: 1. continue regular diet; pre-packaged foods when able per w/ bottled water per diet order 2. Ensure Enlive TIDWM per MD; encourage meals/ONS intake 3. routine bowel care 4. weekly wt Addendum: 03/15/23 at [address] Amended: Links added.
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
[2023-03-15 20:00] VITALS: BP 102/69; PULSE 91; RESP 16; TEMP 97.8; O2SAT 98
[2023-03-15] MEDS: polyethylene glycol 3350 17gm powd pack PO SCH (20:14)
[2023-03-15] MEDS: mirtazapine 15mg tablet PO SCH (20:14)
[2023-03-15] MEDS: quetiapine fumarate ER 300mg tablet PO SCH (20:14)
[2023-03-15] MEDS: gabapentin 300mg capsule PO SCH (20:14)
[2023-03-15] MEDS: OLANZAPINE 5 MG TABLET PO SCH (20:14)
--- NOTE | 2023-03-15 22:29 | NUR ---
NURSING PROGRESS NOTE Delfino Problem: Pt admitted to [facility] today on 5150 for DTS from our ER. Pt reported suicidal ideation, punched hands through a window, and hit his head against a refrigerator. Pt has lacerations with 28 davon present on his right forearm, area was cleaned with normal saline, Xeroform and non-adherent dressing placed, and wrapped with gauze. Pictures were obtained and placed in pt.s chart and a wound care consult was placed per KASIE Uribe. Pt. also has a bruise in the middle of his forehead. Pt reports worsening voices the past 10-12 weeks in which he is actively trying to make stop. Although he does not want to harm himself, "I understand why people with voices kill themselves; to make it stop." He is seeking help. Pt has history of PTSD, schizophrenia, bipolar and antisocial personality disorder. Interventions: Maintained a safe and supportive environment, provided clear and simple instructions, attempted to orient to reality, provided active listening and positive encouragement, ENCOURAGED patient to verbalize increased agitation or restlessness, maintained LOS. Response: Pt remains LOS r/t self-harm behaviors. Pt was calm and cooperative the entire shift. Pt stated that he has some depression because he is here at the hospital. He denies SI and his voices are subtle. Pt states he doesnt want to harm himself or anyone else. Pt tolerated wound care dressing, rinsed with normal saline, applied xeroform and wrapped with coflex. No s/s of infection, no drainage or redness. Pt is currently sleeping, will continue to monitor. Plan: Patient continues to have severe intermittent CAH to harm himself. Plan to remain free from self harm per shift. Pt currently requires LOS until stable or until he no longer self-harms.
[2023-03-16] MEDS: LORazepam 1 MG tablet PO SCH ×4 (02:00→20:06)
[2023-03-16 07:20] VITALS: BP 118/73; PULSE 72; RESP 16; TEMP 97.6; O2SAT 98
[2023-03-16] MEDS: lactose-reduced food (Ensure Enlive) - 237ml bottle PO SCH ×3 (08:08→18:05)
[2023-03-16] MEDS: olanzapine 10mg tablet PO SCH ×3 (08:08→18:05)
[2023-03-16] MEDS: magnesium hydroxide 30ml (MOM) UD suspension PO PRN (14:21)
--- NOTE | 2023-03-16 14:45 | NUR ---
NURSING PROGRESS NOTE Problem: Pt admitted to [facility] today on 5150 for DTS from our ER. Pt reported suicidal ideation, punched hands through a window, and hit his head against a refrigerator. Pt has lacerations with 28 davon present on his right forearm, area was cleaned with normal saline, Xeroform and non-adherent dressing placed, and wrapped with gauze. Pictures were obtained and placed in pt.s chart and a wound care consult was placed per KASIE Uribe. Pt. also has a bruise in the middle of his forehead. Pt reports worsening voices the past 10-12 weeks in which he is actively trying to make stop. Although he does not want to harm himself, "I understand why people with voices kill themselves; to make it stop." He is seeking help. Pt has history of PTSD, schizophrenia, bipolar and antisocial personality disorder. Interventions: Maintained a safe and supportive environment, provided clear and simple instructions, attempted to orient to reality, provided active listening and positive encouragement, ENCOURAGED patient to verbalize increased agitation or restlessness, maintained LOS. Response: Received patient sleeping at shift change. LOS maintained. Pt reports fatigue, but decreased AH. Pt isolated to his room the entire shift, he was in and out of napping. Pt took scheduled medication without issue. Pt continues to have paranoid thoughts that the food is poisoned, he did eat pizza that was provided at 1500 snack time. Pt is polite saying please and thank you at the appropriate times. Director Advertising still working with dietary to provide pre packaged food for patient. Pt declines his power pudding because it's not pre packaged. Again pt is aware of his paranoid thoughts "I try to work through them." Wound care was provided per orders. Pt denies SI, HI, VH. Scheduled Ativan continues to appear effective. No outbursts as of this writing. Plan: Patient continues to have severe intermittent CAH to harm himself. Plan to remain free from self harm per shift. Pt currently requires LOS until stable or until he no longer self-harms. Addendum: 03/16/23 at 1755 by Danae Ybarra RN MOM administered. LBM two days ago. Pt however hasn't been eating much. Continue to monitor.
[2023-03-16 19:40] VITALS: BP 115/75; PULSE 98; RESP 18; TEMP 98.2; O2SAT 96
[2023-03-16] MEDS: OLANZAPINE 5 MG TABLET PO SCH (20:05)
[2023-03-16] MEDS: quetiapine fumarate ER 300mg tablet PO SCH (20:05)
[2023-03-16] MEDS: mirtazapine 15mg tablet PO SCH (20:06)
[2023-03-16] MEDS: gabapentin 300mg capsule PO SCH (20:06)
[2023-03-16] MEDS: polyethylene glycol 3350 17gm powd pack PO SCH (20:07)
[2023-03-17] MEDS: LORazepam 1 MG tablet PO SCH ×4 (01:56→19:54)
--- NOTE | 2023-03-17 03:29 | NUR ---
Nursing Progress Note: Problem: Pt admitted to [facility] today on 5150 for DTS from our ER. Pt reported suicidal ideation, punched hands through a window, and hit his head against a refrigerator. Pt has lacerations with 28 davon present on his right forearm, area was cleaned with normal saline, Xeroform and non-adherent dressing placed, and wrapped with gauze. Pictures were obtained and placed in pt.s chart and a wound care consult was placed per KASIE Uribe. Pt. also has a bruise in the middle of his forehead. Pt reports worsening voices the past 10-12 weeks in which he is actively trying to make stop. Although he does not want to harm himself, "I understand why people with voices kill themselves; to make it stop." He is seeking help. Pt has history of PTSD, schizophrenia, bipolar and antisocial personality disorder. Interventions: Maintained a safe and supportive environment, provided clear and simple instructions, attempted to orient to reality, provided active listening and positive encouragement, ENCOURAGED patient to verbalize increased agitation or restlessness, maintained LOS. Response: upon shift patient was observed coming in and out of room for phone. During 1:1, patient denied all symptoms. Patient denied all pain, and made the decision to keep incision uncovered for the night. Patient admits to being constipated yet having very small bowels throughout the day. Patient was given dose of MOM previous shift. Along with polyethylene as a routine give during this shift. Patient denies being social states I have no want to meet new people, they arent like me. And I talk with people who read the bible like me, Im a Jehovah witness. Patient believes hes losing his mind because he cant seem to remember things that he thinks he should (nurses name, when he bangs his head in wall). Patient begins to open up about the one good thing he had in his life when he was 20 and he messed it all up. He had a girlfriend whom he lived with and her parents and he said if he could change what happened between them he would in a heartbeat. Patient wasnt very clear on what happened between them but did say that he was eventually kicked out and on his own. Patient says he wants to return to the place he was at before here and not in correction again but says I dont want to hurt nobody, Id rather hurt myself. Patient given snack (completely sealed) in room and was very appreciative. Patient laid in bed for remainder of night. No obvious signs of distress to note. Plan: Patient continues to have severe intermittent CAH to harm himself. Plan to remain free from self harm per shift. Pt currently requires LOS until stable or until he no longer self-harms.
--- NOTE | 2023-03-17 04:11 | NUR ---
HORSE SHOW JUDGE documentation: I have reviewed all interventions, assessments performed and documented by ADELE Kennedy
[2023-03-17 07:44] VITALS: BP 143/91; PULSE 79; RESP 16; TEMP 97.8; O2SAT 99
[2023-03-17] MEDS: lactose-reduced food (Ensure Enlive) - 237ml bottle PO SCH ×3 (08:35→18:11)
[2023-03-17] MEDS: olanzapine 10mg tablet PO SCH ×3 (08:35→18:11)
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
[2023-03-17 19:31] VITALS: BP 125/74; PULSE 84; RESP 16; TEMP 98.9; O2SAT 98
[2023-03-17] MEDS: polyethylene glycol 3350 17gm powd pack PO SCH (19:54)
[2023-03-17] MEDS: gabapentin 300mg capsule PO SCH (19:55)
[2023-03-17] MEDS: OLANZAPINE 5 MG TABLET PO SCH (19:56)
[2023-03-17] MEDS: quetiapine fumarate ER 300mg tablet PO SCH (19:57)
[2023-03-17] MEDS: mirtazapine 15mg tablet PO SCH (19:57)
[2023-03-18] MEDS: LORazepam 1 MG tablet PO SCH ×4 (01:50→20:09)
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
--- NOTE | 2023-03-18 05:06 | NUR ---
LUGGAGE ATTENDANT documentation: I have reviewed all interventions, assessments performed and documented by ADELE Kennedy
[2023-03-18 07:00] VITALS: RESP 12; O2SAT 99
[2023-03-18 07:29] VITALS: BP 108/82; PULSE 89; RESP 12; TEMP 97.1; O2SAT 99
[2023-03-18] MEDS: olanzapine 10mg tablet PO SCH ×3 (08:09→18:11)
[2023-03-18] MEDS: lactose-reduced food (Ensure Enlive) - 237ml bottle PO SCH ×3 (08:10→18:09)
--- NOTE | 2023-03-18 17:04 | NUR ---
NURSING PROGRESS NOTE Problem: Pt admitted on 5150 for DTS from our ER. Pt reported SI r/t severe AH, worsening the last 10-12 weeks. Pt punched right hand through a window, and hit his head against a refrigerator.Pt required 28 davon to right forearm. Pt states he does not want to harm himself, "I understand why people with voices kill themselves; to make it stop." Pt is seeking help. Pt has had prior SA via hangings (2010, 2012, 2018), two resulted being on life support. Pt has history of PTSD, schizophrenia, bipolar and antisocial personality disorder. Interventions: Maintained a safe and supportive environment, provided clear and simple instructions, provided active listening and positive encouragement, ENCOURAGED patient to verbalize any increase in agitation or restlessness, bowel management, maintained LOS. Response: Patient sleeping in bed supine at change of shift. Patient awakens and takes his medications and eats his boxed food in his room. Patient states that he has not had A/H in two days now. Patient is still thinking about SI, stating he just wants to . Patient's wound to his right upper arm, davon were removed and steri-strips applied. No drainage or redness noted. 28 davon were removed and accounted for. Patient is respectful during interactions and pleasant with staff. Patient does self-isolate to his room, as he gets stressed with increased stimuli. Patient states that he wants to discharge, and walk around town with friends and family. Sitter at bedside due to DTS. Plan: Patient continues to have severe intermittent CAH to harm himself. Plan to remain free from self harm per shift. Pt currently requires LOS until stable or until he no longer self-harms.
[2023-03-18] MEDS: magnesium hydroxide 30ml (MOM) UD suspension PO PRN (18:17)
[2023-03-18 19:16] VITALS: RESP 16; O2SAT 97
[2023-03-18 20:00] VITALS: BP 129/82; PULSE 104; RESP 16; TEMP 98.4; O2SAT 98
[2023-03-18] MEDS: OLANZAPINE 5 MG TABLET PO SCH (20:09)
[2023-03-18] MEDS: quetiapine fumarate ER 300mg tablet PO SCH (20:10)
[2023-03-18] MEDS: gabapentin 300mg capsule PO SCH (20:10)
[2023-03-18] MEDS: polyethylene glycol 3350 17gm powd pack PO SCH (20:10)
[2023-03-18] MEDS: mirtazapine 15mg tablet PO SCH (20:10)
[2023-03-19] MEDS: LORazepam 1 MG tablet PO SCH ×3 (01:55→19:04)
--- NOTE | 2023-03-19 02:59 | NUR ---
NURSING PROGRESS NOTE Delfino Problem: Pt admitted on 5150 for DTS from our ER. Pt reported SI r/t severe AH, worsening the last 10-12 weeks. Pt punched right hand through a window, and hit his head against a refrigerator. Pt required 28 davon to right forearm. Pt states he does not want to harm himself, "I understand why people with voices kill themselves; to make it stop." Pt is seeking help. Pt has had prior SA via hangings (2010, 2012, 2018), two resulted being on life support. Pt has history of PTSD, schizophrenia, bipolar and antisocial personality disorder. Interventions: Maintained a safe and supportive environment, provided clear and simple instructions, provided active listening and positive encouragement, ENCOURAGED patient to verbalize any increase in agitation or restlessness, bowel management, maintained LOS. Response: Received report from AM shift. Pt lying in bed quietly with eyes open. Pt is pleasant and cooperative. Pt tolerated meds with no issues noted. Pt denies SI, HI, AH/VH at this time. Pt elaborated about diagnosis from childhood and being in longterm and things that traumatized him. Pt reported thoughts gets overwhelming. Pt reported he has thoughts of dying in his sleep due to the voices in his head. Pt denies any voices at this time. Pt at LOS due to DTS. Pts wound to R forearm clean, dry, and intact no drainage no infection noted. Pt reported some discomfort to R forearm. Pt isolates self in room this shift. Pt did not attend snacks this evening. No s/s of distress at this time. Plan: Patient continues to have severe intermittent CAH to harm himself. Plan to remain free from self harm per shift. Pt currently requires LOS until stable or until he no longer self-harms.
[2023-03-19 07:00] VITALS: RESP 12; O2SAT 99
[2023-03-19 07:26] VITALS: BP 124/75; PULSE 81; RESP 16; TEMP 97.6; O2SAT 98
[2023-03-19] MEDS: lactose-reduced food (Ensure Enlive) - 237ml bottle PO SCH ×3 (08:00→18:00)
[2023-03-19] MEDS: olanzapine 10mg tablet PO SCH ×3 (08:20→18:16)
[2023-03-19] MEDS: docusate sod 100mg capsule PO PRN (11:25)
[2023-03-19] MEDS ORDERED: magnesium citrate 296ml oral solution PO ONE (11:35)
--- NOTE | 2023-03-19 14:34 | NUR ---
WOUND INFECTION EDUCATION PROVIDED BY [facility]OUND [facility] 1. Patient instructed to call their primary doctor, or go the ED immediately if any of the following symptoms occur: * Increased pain in wound * Increase in drainage from the wound * Redness in the skin surrounding the wound * Warmth in the skin surrounding the wound * Bleeding from the wound * Temperature of 101 or greater 2. If any of these occur while in the hospital tell a nurse immediately. Addendum: 03/19/23 at 1435 by Carlene Simmons LVN Amended: Links added.
--- NOTE | 2023-03-19 14:36 | NUR ---
F/u 03/19: Pt PO continues to fluctuate though much improved past 2.5 days ~88% past 8 meals w/ only one refusal WB this AM. Pt receiving almost all pre-packaged foods as able per preferences though is challenging w/ gluten and lactose allergies. PO 100% almost all Ensure Enlive TIDWM pst 6 days overall at least partially meeting estimated needs. Pt initially received beef jerky from [employer] w/ pt requesting per RN today however this contains gluten so unable to send; RD d/w RN pt reported allergies since pt eats pizza/hamburgers at home per PA note. Per RN, confirmed w/ pt today lactose intolerance and gluten allergy. RD f/u d/w different floor RN who recalls pt tolerating beef jerky he initially received. Unlikely pt has true gluten allergy given home food hx in PA note and beef jerky tolerance since contains gluten however will continue to honor allergen in EMR. LBM 03/14 w/ small BM 03/18 otherwise 5 days constipation receiving routine miralax HS, PRN MoM 03/18, one-time mage citrate 03/19, and PRN colace 03/19 per EMR. Will continue to follow. Rec: 1. continue regular diet; pre-packaged foods when able w/ bottled water per diet order/pt preference 2. Ensure Enlive TIDWM per MD; encourage meals/ONS intake 3. routine bowel care; 5 days constipation 4. weekly wt Addendum: 03/19/23 at [address] Amended: Links added.
--- NOTE | 2023-03-19 17:54 | NUR ---
NURSING PROGRESS NOTE Problem: Pt admitted on 5150 for DTS from our ER. Pt reported SI r/t severe AH, worsening the last 10-12 weeks. Pt punched right hand through a window, and hit his head against a refrigerator. Pt required 28 davon to right forearm. Pt states he does not want to harm himself, "I understand why people with voices kill themselves; to make it stop." Pt is seeking help. Pt has had prior SA via hangings (2010, 2012, 2018). Two resulted being on life support. Pt has history of PTSD, schizophrenia, bipolar and antisocial personality disorder. Interventions: Maintained a safe and supportive environment, provided clear and simple instructions, provided active listening and positive encouragement, ENCOURAGED patient to verbalize any increase in agitation or restlessness, bowel management, maintained LOS. Response: Patient sleeping until breakfast. He continues to self-isolate to his room and remains paranoid about food. He will only eat prepackaged food at this time. Dietary called to report that due to his being Lactose and Gluten intolerant, they are having trouble providing for his needs. Patient continues to be calm and cooperative with staff. The davon to wounded right forearm have been removed and it is open to air. He continues to report SI and occasional CAH. No other MH symptoms observed. Patient wants to discharge, but its feared that he will finish his suicide. He was removed from LOS today. Plan: Patient continues to have severe intermittent CAH to harm himself. Plan to remain free from self- harm per shift. Patient removed from LOS today.
[2023-03-19 19:35] VITALS: BP 120/78; PULSE 95; RESP 18; TEMP 98.7; O2SAT 97
[2023-03-19] MEDS: gabapentin 300mg capsule PO SCH (20:39)
[2023-03-19] MEDS: quetiapine fumarate ER 300mg tablet PO SCH (20:39)
[2023-03-19] MEDS: OLANZAPINE 5 MG TABLET PO SCH (20:39)
[2023-03-19] MEDS: mirtazapine 15mg tablet PO SCH (20:39)
[2023-03-19] MEDS: polyethylene glycol 3350 17gm powd pack PO SCH (20:43)
--- NOTE | 2023-03-19 22:59 | NUR ---
NURSING PROGRESS NOTE Delfino Problem: Pt admitted on 5150 for DTS from our ER. Pt reported SI r/t severe AH, worsening the last 10-12 weeks. Pt punched right hand through a window, and hit his head against a refrigerator. Pt required 28 davon to right forearm. Pt states he does not want to harm himself, "I understand why people with voices kill themselves; to make it stop." Pt is seeking help. Pt has had prior SA via hangings (2010, 2012, 2018). Two resulted being on life support. Pt has history of PTSD, schizophrenia, bipolar and antisocial personality disorder. Interventions: Maintained a safe and supportive environment, provided clear and simple instructions, provided active listening and positive encouragement, ENCOURAGED patient to verbalize any increase in agitation or restlessness, bowel management, maintained LOS. Response: Patient observed resting in bed. Pt came out of his room requesting a new scrub top and mentions he is very anxious. Pt states his anxiety level is 8/10, 1 MG Ativan given 1 hour early (OK per Dr Mcdonald) with good results. He denies SI/AH and states he has no thoughts of harming himself. He participated in snacks and took all HS medications. Pt is currently sleeping no other needs at this time. Continue to monitor. Plan: Patient continues to have severe intermittent CAH to harm himself. Plan to remain free from self- harm per shift. Patient removed from LOS today.
[2023-03-20 07:00] VITALS: RESP 12; O2SAT 99
[2023-03-20 07:26] VITALS: BP 108/75; PULSE 63; RESP 12; TEMP 98.2; O2SAT 98
[2023-03-20] MEDS: olanzapine 10mg tablet PO SCH ×3 (08:08→18:31)
[2023-03-20] MEDS: LORazepam 1 MG tablet PO SCH ×2 (08:08→19:26)
[2023-03-20] MEDS: lactose-reduced food (Ensure Enlive) - 237ml bottle PO SCH ×3 (08:58→18:59)
--- NOTE | 2023-03-20 17:42 | NUR ---
NURSING PROGRESS NOTE Problem: Pt admitted on 5150 for DTS from our ER. Pt reported SI r/t severe AH, worsening the last 10-12 weeks. Pt punched right hand through a window, and hit his head against a refrigerator. Pt required 28 davon to right forearm. Pt states he does not want to harm himself, "I understand why people with voices kill themselves; to make it stop." Pt is seeking help. Pt has had prior SA via hangings (2010, 2012, 2018). Two resulted being on life support. Pt has history of PTSD, schizophrenia, bipolar and antisocial personality disorder. Interventions: Maintained a safe and supportive environment, provided clear and simple instructions, provided active listening and positive encouragement, ENCOURAGED patient to verbalize any increase in agitation or restlessness, bowel management, maintained LOS. Response: Patient sleeps until breakfast. He continues to isolate to his room, Im anti-social and dont feel safe in crowds. It has nothing to do with you people. Youve all been great. Its just in my head. Same with food. I know its not poison, but my illness is telling me it is. Patient is only eating pre-packaged food at this point, I just cant help myself right now. Patient has opened up to this nurse and explained these thoughts. He also knows that the voices will probably never go away, but if he stays on his medications, they are lessened. I can live with that. His wounds are healing, the voices are manageable per patient, and hes no longer LOS. He is probably at his baseline, and he believes he is ready for discharge. Plan: Patient continues to have severe intermittent CAH to harm himself. Plan to remain free from self- harm per shift. Patient removed from LOS yesterday.
[2023-03-20] MEDS: hydrOXYzine 25 MG tablet PO PRN (18:31)
[2023-03-20 19:00] VITALS: RESP 18; O2SAT 96
[2023-03-20 20:00] VITALS: BP 151/86; PULSE 119; RESP 20; TEMP 98.1; O2SAT 98
[2023-03-20] MEDS: polyethylene glycol 3350 17gm powd pack PO SCH (21:01)
[2023-03-20] MEDS: mirtazapine 15mg tablet PO SCH (21:01)
[2023-03-20] MEDS: gabapentin 300mg capsule PO SCH (21:01)
[2023-03-20] MEDS: quetiapine fumarate ER 300mg tablet PO SCH (21:01)
[2023-03-20] MEDS: OLANZAPINE 5 MG TABLET PO SCH (21:01)
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
[2023-03-21 07:00] VITALS: RESP 12; O2SAT 99
[2023-03-21 07:22] VITALS: BP 114/69; PULSE 83; RESP 12; TEMP 97.9; O2SAT 98
[2023-03-21] MEDS: LORazepam 1 MG tablet PO SCH (08:02)
[2023-03-21] MEDS: olanzapine 10mg tablet PO SCH ×3 (08:02→17:37)
[2023-03-21] MEDS: lactose-reduced food (Ensure Enlive) - 237ml bottle PO SCH ×3 (08:56→18:00)
[2023-03-21] MEDS ORDERED: LORazepam 0.5 MG tablet PO SCH (13:00)
[2023-03-21] MEDS: LORazepam 0.5 MG tablet PO SCH ×2 (17:37→19:32)
--- NOTE | 2023-03-21 17:49 | NUR ---
NURSING PROGRESS NOTE Problem: Pt admitted on 5150 for DTS from our ER. Pt reported SI r/t severe AH, worsening the last 10-12 weeks. Pt punched right hand through a window, and hit his head against a refrigerator. Pt required 28 davon to right forearm. Pt states he does not want to harm himself, "I understand why people with voices kill themselves; to make it stop." Pt is seeking help. Pt has had prior SA via hangings (2010, 2012, 2018). Two resulted being on life support. Pt has history of PTSD, schizophrenia, bipolar and antisocial personality disorder. Interventions: Maintained a safe and supportive environment, provided clear and simple instructions, provided active listening and positive encouragement, ENCOURAGED patient to verbalize any increase in agitation or restlessness, bowel management, maintained LOS. Response: Patient sleeps until breakfast. He continues to be paranoid about food, so he will only eat pre-packaged foods. Patient is Lactose and Gluten intolerant, so its quite difficult to provide pre-packaged foods without Gluten or Lactose. Hes compliant with all medications and believes they are helping him. Patient reports that his voices are barely there, but his depression gets worse the longer he is here. He continues to isolate to his room due to his anti-social behavior. Plan: Patient reports that his voices have lessened, but he is still needing medication adjustments. Plan to remain free from self- harm per shift. Patient removed from LOS.
[2023-03-21 19:00] VITALS: RESP 18; O2SAT 98
[2023-03-21] MEDS: polyethylene glycol 3350 17gm powd pack PO SCH (19:32)
[2023-03-21] MEDS: hydrOXYzine 25 MG tablet PO PRN (19:33)
[2023-03-21] MEDS: docusate sod 100mg capsule PO PRN (19:33)
[2023-03-21] MEDS: mirtazapine 15mg tablet PO SCH (19:33)
[2023-03-21] MEDS: quetiapine fumarate ER 300mg tablet PO SCH (19:33)
[2023-03-21] MEDS: gabapentin 300mg capsule PO SCH (19:33)
[2023-03-21] MEDS: OLANZAPINE 5 MG TABLET PO SCH (19:34)
[2023-03-21 20:00] VITALS: BP 124/81; PULSE 81; RESP 18; TEMP 98.7; O2SAT 98
--- NOTE | 2023-03-22 04:36 | NUR ---
RN PROGRESS NOTE: LEGAL HOLD: 5250 for DTS PROBLEM: Admitted for worsening command auditory hallucinations that led him to put his arm through a window and repeatedly bang his head. Suicidal with prior highly lethal attempts. SA via hangings (2010, 2012, 2018). Two resulted in being on life support. Pt has history of PTSD, schizophrenia, bipolar and antisocial personality disorder. INTERVENTIONS: Maintained a safe and supportive environment, provided clear and simple instructions, provided active listening and positive encouragement, ENCOURAGED patient to verbalize any increase in agitation or restlessness, bowel management, maintained LOS. RESPONSE: Client was struggling in the beginning of the shift, pacing in the grissom with an anxious, tense expression. He accepted his meds an hour early. His meds were in the packages so that client could see they were not contaminated. He stated "People can open capsules and put something else in them. I was in shelter, and the police don't like me. I'm costing the Government money so they would like to get rid of me. I'm on SSI." Client watched this RN open each med. He was given another unopened bottle of water. Mood is depressed/anxious. Cooperative. PLAN: Patient continues to have severe intermittent CAH to harm himself. Plan to remain free from self- harm per shift. Patient removed from LOS today.
[2023-03-22 07:00] VITALS: RESP 20; O2SAT 98
[2023-03-22 08:00] VITALS: BP 118/79; PULSE 78; RESP 20; TEMP 96.6; O2SAT 98
[2023-03-22] MEDS: olanzapine 10mg tablet PO SCH ×3 (08:00→17:24)
[2023-03-22] MEDS: LORazepam 0.5 MG tablet PO SCH ×3 (08:00→21:00)
[2023-03-22] MEDS: lactose-reduced food (Ensure Enlive) - 237ml bottle PO SCH ×3 (08:04→18:01)
--- NOTE | 2023-03-22 16:57 | NUR ---
NURSING PROGRESS NOTE: Delfino Problem: Pt admitted on 5150 for DTS from our ER. Pt reported SI r/t severe AH, worsening the last 10-12 weeks. Pt punched right hand through a window, and hit his head against a refrigerator. Pt required 28 davon to right forearm. Pt states he does not want to harm himself, "I understand why people with voices kill themselves; to make it stop." Pt is seeking help. Pt has had prior SA via hangings (2010, 2012, 2018). Two resulted being on life support. Pt has history of PTSD, schizophrenia, bipolar and antisocial personality disorder. Interventions: Maintained a safe and supportive environment, provided clear and simple instructions, provided active listening and positive encouragement, ENCOURAGED patient to verbalize any increase in agitation or restlessness, bowel management, maintained LOS. Response: Received pt asleep. Pt ate breakfast in his room and took his morning medications cooperatively. When this RN asked pt why he eats in his room he stated I have antisocial personality disorder. Performed 1:1 bedside, pt denies SI/HI, and AVH. Pt isolated to his room for most of the shift. No s/s of distress. Pt observed pacing hallways. Pt requested PRN anxiety medication right before 1600 scheduled Ativan due, given with good effect. Plan: Patient reports that his voices have lessened, but he is still needing medication adjustments. Plan to remain free from self- harm per shift. Patient removed from LOS.
[2023-03-22] MEDS: hydrOXYzine 25 MG tablet PO PRN (18:19)
[2023-03-22] MEDS ORDERED: LORazepam 2 mg/ml vial IM ONE ×2 (18:35→19:30)
[2023-03-22] MEDS ORDERED: diphenhydrAMINE 50 mg/ml inj IM ONE (18:35)
[2023-03-22] MEDS ORDERED: haloperidol lactate 5mg/ml inj IM ONE (18:35)
[2023-03-22 19:00] VITALS: RESP 18; RESP 22
[2023-03-22] MEDS ORDERED: LORazepam 2 mg/ml vial ONE (19:03)
[2023-03-22] MEDS: polyethylene glycol 3350 17gm powd pack PO SCH (19:15)
[2023-03-22] MEDS: mirtazapine 15mg tablet PO SCH (19:19)
[2023-03-22] MEDS: gabapentin 300mg capsule PO SCH (19:19)
[2023-03-22] MEDS: docusate sod 100mg capsule PO PRN (19:20)
[2023-03-22] MEDS: quetiapine fumarate ER 300mg tablet PO SCH (21:02)
[2023-03-22] MEDS: OLANZAPINE 5 MG TABLET PO SCH (21:03)
--- NOTE | 2023-03-23 00:52 | NUR ---
RN PROGRESS NOTE: LEGAL HOLD: 5250 for DTS PROBLEM: Admitted for worsening command auditory hallucinations that led him to put his arm through a window and repeatedly bang his head. Suicidal with prior highly lethal attempts. SA via hangings (2010, 2012, 2018). Two resulted in being on life support. Pt has history of PTSD, schizophrenia, bipolar and antisocial personality disorder. INTERVENTIONS: Maintained a safe and supportive environment, provided clear and simple instructions, provided active listening and positive encouragement, ENCOURAGED patient to verbalize any increase in agitation or restlessness, bowel management, maintained LOS. RESPONSE: Client was agitated, pacing the halls, and threatening to bang his head against the wall. He requested something for anxiety. While walking with [employer] he stopped and began to 'cry-out' and bang his head against the wall. Security was called and client accepted 1 mg Ativan IM, 5 mg Haldol IM, and 50 mg Diphenhydramine IM. Clients' anxiety and agitation continued. He stated "Why is this happening to me!?!" Client accepted another 1 mg Ativan IM. He also took his PM meds. There was a reddened raised area on his forehead that he reported was "already there". He declined an ice pack. Client asked if he could still be discharged tomorrow as he wants to return to his apartment. This RN asked client "How would you handle a similar episode when discharged?". He replied "I'd run up and down [address]." Client was restless but was able to fall asleep. PLAN: Patient continues to have severe intermittent CAH to harm himself. Plan to remain free from self- harm per shift. Patient removed from LOS today.
[2023-03-23 07:00] VITALS: RESP 18; O2SAT 97
[2023-03-23] MEDS: LORazepam 0.5 MG tablet PO SCH ×3 (07:49→20:20)
[2023-03-23] MEDS: olanzapine 10mg tablet PO SCH ×3 (07:49→17:11)
[2023-03-23 08:00] VITALS: BP 115/77; PULSE 96; RESP 18; TEMP 97.4; O2SAT 97
[2023-03-23] MEDS: lactose-reduced food (Ensure Enlive) - 237ml bottle PO SCH ×3 (08:27→18:08)
[2023-03-23] MEDS: hydrOXYzine 25 MG tablet PO PRN (17:11)
[2023-03-23] MEDS ORDERED: LORazepam 1 MG tablet PO ONE (17:25)
--- NOTE | 2023-03-23 17:50 | NUR ---
NURSING PROGRESS NOTE: Delfino Problem: Pt admitted on 5150 for DTS from our ER. Pt reported SI r/t severe AH, worsening the last 10-12 weeks. Pt punched right hand through a window, and hit his head against a refrigerator. Pt required 28 davon to right forearm. Pt states he does not want to harm himself, "I understand why people with voices kill themselves; to make it stop." Pt is seeking help. Pt has had prior SA via hangings (2010, 2012, 2018). Two resulted being on life support. Pt has history of PTSD, schizophrenia, bipolar and antisocial personality disorder. Interventions: Maintained a safe and supportive environment, provided clear and simple instructions, provided active listening and positive encouragement, ENCOURAGED patient to verbalize any increase in agitation or restlessness, bowel management, maintained LOS. Response: Received pt asleep. Pt ate breakfast in his room and took his morning medications cooperatively. Performed 1:1 bedside, pt denies SI/HI, and AVH. Pt isolated to his room for most of the shift. This RN requested more PRN medications from PCP due to episode of self-harm reported from last night. No new orders at this time. Pt ate lunch in his room and took afternoon medication cooperatively. 1700 pt told MUTUAL FUND MANAGER that he would start banging his head if not given medications. MUTUAL FUND MANAGER administered PRN Atarax and scheduled Zyprexa. Pt still agitated, order received for PRN Ativan 1mg PO once. This RN stayed in patients room and talked to him about coping mechanisms and positive thoughts. Pt observed calming down while discussing Jehovah Witnesss, the ocean, and the [place]. Will continue to monitor. Plan: Patient reports that his voices have lessened, but he is still needing medication adjustments. Plan to remain free from self- harm per shift. Patient removed from LOS.
[2023-03-23 18:55] VITALS: RESP 18; O2SAT 97
[2023-03-23 19:48] VITALS: BP 128/85; PULSE 83; RESP 18; TEMP 98.8; O2SAT 97
[2023-03-23] MEDS: OLANZAPINE 5 MG TABLET PO SCH (20:19)
[2023-03-23] MEDS: gabapentin 300mg capsule PO SCH (20:19)
[2023-03-23] MEDS: mirtazapine 15mg tablet PO SCH (20:19)
[2023-03-23] MEDS: quetiapine fumarate ER 300mg tablet PO SCH (20:19)
[2023-03-23] MEDS: polyethylene glycol 3350 17gm powd pack PO SCH (20:20)
[2023-03-24 07:00] VITALS: RESP 16; O2SAT 99
[2023-03-24 08:00] VITALS: BP 112/60; PULSE 85; RESP 16; TEMP 98.6; O2SAT 99
[2023-03-24] MEDS: olanzapine 10mg tablet PO SCH ×3 (08:06→17:17)
[2023-03-24] MEDS: busPIRone 15mg tablet PO SCH ×3 (08:06→19:00)
[2023-03-24] MEDS: lactose-reduced food (Ensure Enlive) - 237ml bottle PO SCH ×2 (08:06→13:07)
--- NOTE | 2023-03-24 14:11 | NUR ---
F/u 03/24: Pt PO ~76% avg regular diet w/ mostly pre-packaged meals and 100% Ensure Enlive TIDWM meeting estimated needs. RD d/w RN regarding reducing Ensure Enlive to once daily if physician agreeable given PO trends. Per RN, d/w physician okay to change ONS to once daily. Pt has requested for wheat bran though cannot send since contains gluten; likely no true gluten allergy but since cannot 100% confirm will still honor allergy in EMR. LBM 03/22 receiving miralax HS and PRN colace 03/22 per EMR. No nutrition concerns at this time. Will continue to follow. Rec: 1. continue regular diet; pre-packaged foods when able w/ bottled water per diet order/pt preference 2. Ensure Enlive TIDWM; change to once daily if physician agreeable given PO trends 3. routine bowel care 4. weekly wt Addendum: 03/24/23 at [address] Amended: Links added.
[2023-03-24] MEDS ORDERED: quetiapine 100mg tablet PO ONE (14:27)
[2023-03-24] MEDS: quetiapine 100mg tablet PO SCH ×2 (15:14→19:00)
[2023-03-24] MEDS: LORazepam 0.5 MG tablet PO SCH (16:04)
--- NOTE | 2023-03-24 16:25 | NUR ---
NURSING PROGRESS NOTE: Delfino Problem: Pt admitted on 5150 for DTS from our ER. Pt reported SI r/t severe AH, worsening the last 10-12 weeks. Pt punched right hand through a window, and hit his head against a refrigerator. Pt required 28 davon to right forearm. Pt states he does not want to harm himself, "I understand why people with voices kill themselves; to make it stop." Pt is seeking help. Pt has had prior SA via hangings (2010, 2012, 2018). Two resulted being on life support. Pt has history of PTSD, schizophrenia, bipolar and antisocial personality disorder. Interventions: Maintained a safe and supportive environment, provided clear and simple instructions, provided active listening and positive encouragement, ENCOURAGED patient to verbalize any increase in agitation or restlessness, bowel management, maintained LOS. Response: Received pt asleep. Pt ate breakfast in his room and took his morning medications cooperatively. Performed 1:1 bedside, pt denies SI/HI, and AVH. Pt isolated to his room for most of the shift. Pt observed picking at right arm, reminded pt to not do so. Pt apologized. Pt states he is depressed from being here. This RN observed pt talking on the phone, receiving a prayer, and discussing medications. Pt displaying paranoid behavior stating that he reads into everything and the fact that he got a rice crispy treat on his tray with the words snap, crackle, pop that it meant his mind was going to pop. Pt took a shower today. Dietary orders changed to 1 ensure daily instead of 3. Pt calm and cooperative with staff. Plan: Patient reports that his voices have lessened, but he is still needing medication adjustments. Plan to remain free from self- harm per shift. Patient removed from LOS. Addendum: 03/24/23 at 1729 by Clotilde Lopez RN Pt calm today during shift change. KASIE Uribe ordered extra one time dose of Quetiapine 100mg which seemed to help.
[2023-03-24] MEDS: hydrOXYzine 25 MG tablet PO PRN (18:14)
[2023-03-24] MEDS: polyethylene glycol 3350 17gm powd pack PO SCH (18:59)
[2023-03-24 19:00] VITALS: BP 146/89; PULSE 138; RESP 18; TEMP 98.2; O2SAT 98
[2023-03-24] MEDS: OLANZAPINE 5 MG TABLET PO SCH (19:00)
[2023-03-24] MEDS: gabapentin 300mg capsule PO SCH (19:00)
[2023-03-24] MEDS: mirtazapine 15mg tablet PO SCH (19:00)
[2023-03-24] MEDS ORDERED: haloperidol lactate 5mg/ml inj ONE (20:03)
[2023-03-24] MEDS ORDERED: diphenhydrAMINE 50 mg/ml inj ONE (20:03)
--- NOTE | 2023-03-25 00:26 | NUR ---
NURSING PROGRESS NOTE: Problem: Pt admitted on 5150 for DTS from our ER. Pt reported SI r/t severe AH, worsening the last 10-12 weeks. Pt punched right hand through a window, and hit his head against a refrigerator. Pt required 28 davon to right forearm. Pt states he does not want to harm himself, "I understand why people with voices kill themselves; to make it stop." Pt is seeking help. Pt has had prior SA via hangings (2010, 2012, 2018). Two resulted being on life support. Pt has history of PTSD, schizophrenia, bipolar and antisocial personality disorder. Interventions: Maintained a safe and supportive environment, provided clear and simple instructions, provided active listening and positive encouragement, ENCOURAGED patient to verbalize any increase in agitation or restlessness, bowel management, maintained LOS. Response: Patient reported severe anxiety and appeared fixated on receiving Ativan. He reported wanting to self harm; Bang FERRO notified and received the OK to provide HS medication early. Patient was compliant with medication and CRN sat with patient redirecting him with music and his adventist beliefs. After aprox 30mins patient claimed he would be OK with staff leaving his bedside; shortly after patient reported wanting to cause harm to himself again and requested PCT to "walk and talk" with him. While they were walking down the gr[place] patient hit his head against the wall and was walked back to his room; he was provided personal protective pad and helmet if he felt he couldn't control his urge to hit something. Bang FERRO notified and received one time order for Haldol 10mg IM and Benadryl 50mg IM. During medication administration patient was inquiring why he was not receiving Ativan with the other IM medication; it was explained to the patient the process of being taken off Ativan. Patient quickly reported that the IM medication wasn't doing anything for him but his behaviors appeared to be settling down. Patient was provided HS snack prior to bed; he is observed sleeping and does not appear to be having difficulty. Plan: Patient reports that his voices have lessened, but he is still needing medication adjustments. Plan to remain free from self- harm per shift. Patient removed from LOS. Addendum: 03/25/23 at 0501 by Daisy Woods RN Patient awoke requesting snack and PRN Atarax.
--- NOTE | 2023-03-25 03:08 | NUR ---
SUPPORT STAFF documentation: I have reviewed and agree with all interventions, assessments performed and documented by Daisy ANGULO.
[2023-03-25] MEDS: hydrOXYzine 25 MG tablet PO PRN ×3 (04:58→19:07)
[2023-03-25 07:00] VITALS: BP 121/72; PULSE 87; RESP 16; TEMP 99.2; O2SAT 98
[2023-03-25 07:30] VITALS: RESP 16; O2SAT 98
[2023-03-25] MEDS: olanzapine 10mg tablet PO SCH ×3 (08:51→18:27)
[2023-03-25] MEDS: busPIRone 15mg tablet PO SCH ×3 (08:51→19:24)
[2023-03-25] MEDS: lactose-reduced food (Ensure Enlive) - 237ml bottle PO SCH (08:54)
--- NOTE | 2023-03-25 11:00 | NUR ---
S/R Initiation (Y=yes; N=no) Date Seclusion/Behavioral Restraint Episode Began:[03/25/23] Time Seclusion/Behavioral Restraint Episode Began:[1100] Type of Restraint(Document Y for the type utilized) mechanical-4 point:[y] physical hold:[] seclusion:[] Behavior Necessitating Behavioral Restraint/Seclusion(Document Y for DTS and/or DTO). Danger to self:[y] Danger to others:[] Alternatives Attempted(Document Y for the alternatives attempted). Decrease stimuli:[y] Diversional activities:[y] Verbal limit setting:[y] Medication:[y] Reality orientation:[y] Show of support:[y] Problem solving:[y] De-escalation:[y] Food and fluids:[y] Increased observation:[] Other:[] Behavioral Description(narrative of circumstances that led to use of S/R):[Pt. talking with his provider when he began hitting his head on the wall. Pt. needed to by physically restrained by 4 staff and security was called. Pt. was escorted to observation room and placed in 4 point restraints. While in restraints pt. continued to struggle and pt. reports hearing voices telling him to hurt himself. Pt. given IM Haldol 10mg and Benadryl 50mg IM with minimal effect. Pt. continued to struggle in restraints and tried to hit his head on the mattress. RN put a pillow under pt.'s head and gave him a padded helmet. Pt. screamed loudly. Pt. was taken out of restraints briefly to allow him to use the toilet, however, pt. voiced that he was going to bang his head. Pt. allowed staff to place him back in restraints.] Medications Given:(medication name/time/route/location/effectiveness):[Haldol 10mg, Benadryl 50mg, Cogentin 1mg IM. Ativan 1mg and Cogentin 1mg po] Patient Injuries Y/N(if Y,describe/actions taken/outcome):[Pt.'s had redness on his forehead. Neuro checks done and pt. has no s&s of injuries] Notifications. Provider/Guardian/conservator/Family/other/No one identified by patient to be notified:[y] Education. Education Topic for Seclusion and Behavioral Restraint(must educate each element and Document Y) Hospital policy:[y] Reason for seclusion or restraint:[y] Bx necessary for release:[y] Monitoring of patient/behavior:[y] Individual Taught(Document Y for individuals taught). Patient:[y] Family:[] Significant other:[] Barriers to Learning(Document Y for the barrier(s)identified). None Identified:[] Emotional Barriers:[y] Inability to Read:[] Shinto Practices:[] Cognitive Impairment:[] Lack of Motivation:[] Language Barriers:[] Hearing:[] Cultural Practice:[] Other:[Psychosis] Teaching Method(Document Y for the method(s)utilized). Verbal:[y] Audio/Visual:[] Handouts:[] Demonstration:[] Other:[] Teaching Evaluation(Document Y for which response is applicable to patient). Verbalizes Understanding:[y] Needs Further Teaching:[y] Returns Demonstration:[] Needs Reinforcement:[y] Needs Practice:[] Needs Supervision:[]
[2023-03-25] MEDS: docusate sod 100mg capsule PO PRN (11:02)
[2023-03-25] MEDS ORDERED: diphenhydrAMINE 50 mg/ml inj ONE (11:09)
[2023-03-25] MEDS ORDERED: haloperidol lactate 5mg/ml inj ONE (11:09)
[2023-03-25] MEDS ORDERED: LORazepam 1 MG tablet PO ONE (12:30)
[2023-03-25] MEDS ORDERED: benztropine 1mg tablet PO ONE (12:40)
[2023-03-25] MEDS ORDERED: benztropine 1 mg/ml 2ml ampule IM ONE (13:05)
--- NOTE | 2023-03-25 13:48 | NUR ---
S/R Discontinuation (Y=yes; N=no) Criteria for Release from Seclusion/Behavioral Restraint.(Y/N) Contracts for Safety:[y] No Longer Danger to Others:[] No Longer Danger to Self:[y] Behavioral Description(narrative):[Pt. calm and talking with RN without struggling] Initiation Date of Seclusion/Behavioral Restraint Episode:[03/25/23] Initiation Time of Seclusion/Behavioral Restraint Episode:[1100] Discontinuation Date of Seclusion/Behavioral Restraint Episode:[03/25/23] Discontinuation Time of Seclusion/Behavioral Restraint Episode:[1348]
--- NOTE | 2023-03-25 13:49 | NUR ---
S/R Debrief (Y=yes; N=no) Date of Seclusion/Behavioral Restraint Episode:[03/25/23] Time of Seclusion/Behavioral Restraint Episode:[1100] Date of Patient Debrief:[03/25/23] Time of Patient Debrief:[1349] Patient Attended Debrief (if N then comment why)[N, pt. resting.] Debrief Info in patient words if possible (not necessary if pt. did not attend debrief) What led to the episode:[Pt. hearing voices to hurt himself] How could patient have handled things differently:[Use coping skills] How could staff have handled things differently:Given pt. more PRNs Patient Perception of Episode:[] Physical Well-Being-(Y/N) Intact:[] Altered:[Pt. has some redness on his forehead] Comment if altered:[Pt. has some redness on his forehead] Psychological/Emotional Comfort-(Y/N) Intact:[] Altered:[y] Comment if altered:[Pt. hearing voices telling him to hurt himself] Right to Privacy- (Y/N) Intact:[y] Altered:[] Comment if altered:[] Trauma Experienced- (Y/N) Intact:[y] Altered:[] Comment if altered:[]
[2023-03-25] MEDS ORDERED: propranolol 10mg tablet PO ONE (14:25)
[2023-03-25] MEDS: quetiapine 100mg tablet PO SCH ×2 (15:02→19:24)
--- NOTE | 2023-03-25 17:47 | NUR ---
NURSING PROGRESS NOTE: Problem: Pt admitted on 5150 for DTS from our ER. Pt reported SI r/t severe AH, worsening the last 10-12 weeks. Pt punched right hand through a window, and hit his head against a refrigerator. Pt required 28 davon to right forearm. Pt states he does not want to harm himself, "I understand why people with voices kill themselves; to make it stop." Pt is seeking help. Pt has had prior SA via hangings (2010, 2012, 2018). Two resulted being on life support. Pt has history of PTSD, schizophrenia, bipolar and antisocial personality disorder. Interventions: Maintained a safe and supportive environment, provided clear and simple instructions, provided active listening and positive encouragement, ENCOURAGED patient to verbalize any increase in agitation or restlessness, bowel management, maintained LOS. Pt. placed in restraints and given emergency medication. Response: RN received pt. asleep in bed at start of shift. Pt. awoke and took medications and ate breakfast. 1:1 done at bedside, pt. denies HI, and VH, but reports hearing voices telling him to hurt himself. Pt. reports passive SI, stating he wants to go to bed and not wake up. Pt. c/o anxiety and requesting PRN. Pt. received Atarax 50mg with minimal effect. While with his provider pt. began to hit his head on the wall. Pt. required 4 staff to keep pt. from hurting himself. Pt. placed in restraints and given IM Haldol 10mg and Benadryl 50mg IM. Pt. continued to struggle in the restraints and tried hitting his head on the bed mattress pt. given helmet and pillow to minimalize damage. Pt. given Ativan 1mg and Cogentin 1mg po. Pt. continued to c/o restlessness and pt. received Cogentin 1mg IM with good effect. Pt. released from restraints and placed on LOS observation. Pt. has paranoid delusion that his drinking water is being poisoned. Pt. also believes that the government is after him. Plan: Patient reports that his voices have lessened, but he is still needing medication adjustments. Plan to remain free from self- harm per shift. Patient removed from LOS.
[2023-03-25 19:00] VITALS: BP 145/90; PULSE 106; RESP 18; TEMP 97.8; O2SAT 98
[2023-03-25] MEDS: Melatonin 3mg tablet PO SCH (19:24)
[2023-03-25] MEDS: benztropine 1mg tablet PO SCH (19:24)
[2023-03-25] MEDS: OLANZAPINE 5 MG TABLET PO SCH (19:24)
[2023-03-25] MEDS: propranolol 10mg tablet PO SCH (19:24)
[2023-03-25] MEDS: mirtazapine 15mg tablet PO SCH (19:24)
[2023-03-25] MEDS: gabapentin 300mg capsule PO SCH (19:24)
[2023-03-25] MEDS: polyethylene glycol 3350 17gm powd pack PO SCH (19:24)
--- NOTE | 2023-03-26 03:25 | NUR ---
NURSING PROGRESS NOTE: Problem: Pt admitted on 5150 for DTS from our ER. Pt reported SI r/t severe AH, worsening the last 10-12 weeks. Pt punched right hand through a window, and hit his head against a refrigerator. Pt required 28 davon to right forearm. Pt states he does not want to harm himself, "I understand why people with voices kill themselves; to make it stop." Pt is seeking help. Pt has had prior SA via hangings (2010, 2012, 2018). Two resulted being on life support. Pt has history of PTSD, schizophrenia, bipolar and antisocial personality disorder. Interventions: Maintained a safe and supportive environment, provided clear and simple instructions, provided active listening and positive encouragement, ENCOURAGED patient to verbalize any increase in agitation or restlessness, bowel management, maintained LOS. Response: Patient was restless and labile this shift; PRNs Atarax for anxiety and Tylenol for LINDA provided. He requested Melatonin and to receive HS medication early; Bang FERRO notified and gave N/O for Melatonin 3mg and to give meds early. Quickly after receiving HS medication patient worked himself up and reported wanting to "bash [his] head into a wall" and pacing. Patient was directed to his room where he could utilize the personal protective pad and helmet. He reported to several staff members needing Clonazepam and that he was refused Xanax. He claimed he "wouldn't do it but if [he] hit somebody [he'd] go to detention." LOS was able to redirect reading the Bible and having the patient work out in his room. He refused HS snack; observed sleeping and does not appear to be having difficulty. Plan: Patient reports that his voices have lessened, but he is still needing medication adjustments. Plan to remain free from self- harm per shift. Patient has LOS.
[2023-03-26 07:30] VITALS: BP 95/60; PULSE 75; RESP 14; TEMP 98.9; O2SAT 98
[2023-03-26] MEDS: benztropine 1mg tablet PO SCH ×2 (08:08→19:14)
[2023-03-26] MEDS: busPIRone 15mg tablet PO SCH ×3 (08:08→19:13)
[2023-03-26] MEDS: olanzapine 10mg tablet PO SCH ×3 (08:09→18:19)
[2023-03-26] MEDS: propranolol 10mg tablet PO SCH ×2 (08:09→19:13)
[2023-03-26] MEDS: lactose-reduced food (Ensure Enlive) - 237ml bottle PO SCH (08:11)
[2023-03-26] MEDS ORDERED: LORazepam 1 MG tablet PO ONE (10:10)
[2023-03-26] MEDS ORDERED: diphenhydrAMINE 25 MG/10 ML UD oral solution PO ONE (10:15)
[2023-03-26] MEDS: quetiapine 100mg tablet PO SCH ×2 (15:48→19:13)
[2023-03-26] MEDS ORDERED: quetiapine 100mg tablet PO ONE (15:50)
--- NOTE | 2023-03-26 17:33 | NUR ---
NURSING PROGRESS NOTE: Problem: Pt admitted on 5150 for DTS from our ER. Pt reported SI r/t severe AH, worsening the last 10-12 weeks. Pt punched right hand through a window, and hit his head against a refrigerator. Pt required 28 davon to right forearm. Pt states he does not want to harm himself, "I understand why people with voices kill themselves; to make it stop." Pt is seeking help. Pt has had prior SA via hangings (2010, 2012, 2018). Two resulted being on life support. Pt has history of PTSD, schizophrenia, bipolar and antisocial personality disorder. Interventions: Maintained a safe and supportive environment, provided clear and simple instructions, provided active listening and positive encouragement, ENCOURAGED patient to verbalize any increase in agitation or restlessness, bowel management, maintained LOS. Pt. given PRN anxiolytics. Response: RN received pt. asleep in bed on LOS at start of shift. Pt. awoke for breakfast and took all medication. Pt. only eats food that is packaged and that he can open. Pt. wants to see this RN open up all medications due to paranoid delusions that he is being poisoned. In AM pt. c/o anxiety and wanting to hit his head, pt. given Ativan 1mg and Benadryl 50mg po with moderate effect. Pt. paced intermittently down the grissom. Pt. continues to request to be placed on Clozaril. Pt. states, Kaela been on these psych meds for 20 years and I think the only thing thats going to work is Clozaril. Provider came and spoke with pt. regarding treatment plan. In the afternoon pt. c/o anxiety. Provider called and Pt. received 200mg of Seroquel with good effect. Plan: Patient reports that his voices have lessened, but he is still needing medication adjustments. Plan to remain free from self- harm per shift. Patient removed from LOS.
[2023-03-26] MEDS: polyethylene glycol 3350 17gm powd pack PO SCH (19:13)
[2023-03-26] MEDS: OLANZAPINE 5 MG TABLET PO SCH (19:13)
[2023-03-26] MEDS: gabapentin 300mg capsule PO SCH (19:14)
[2023-03-26] MEDS: Melatonin 3mg tablet PO SCH (19:14)
[2023-03-26] MEDS: sennosides/docusate sodium tablet PO SCH (19:14)
[2023-03-26] MEDS: mirtazapine 15mg tablet PO SCH (19:14)
[2023-03-26 19:42] VITALS: BP 118/93; PULSE 110; RESP 18; TEMP 98.3; O2SAT 97
--- NOTE | 2023-03-27 00:37 | NUR ---
NURSING PROGRESS NOTE: Delfino Problem: Pt admitted on 5150 for DTS from our ER. Pt reported SI r/t severe AH, worsening the last 10-12 weeks. Pt punched right hand through a window, and hit his head against a refrigerator. Pt required 28 davon to right forearm. Pt states he does not want to harm himself, "I understand why people with voices kill themselves; to make it stop." Pt is seeking help. Pt has had prior SA via hangings (2010, 2012, 2018). Two resulted being on life support. Pt has history of PTSD, schizophrenia, bipolar and antisocial personality disorder. Interventions: Maintained a safe and supportive environment, provided clear and simple instructions, provided active listening and positive encouragement, ENCOURAGED patient to verbalize any increase in agitation or restlessness, bowel management, maintained LOS. Pt. given PRN anxiolytics. Response: RN received pt. lying in bed resting on LOS for DTS. Pt requested his HS medications early because he states it takes an hour for them to work. Pt keeps insisting on taking Clozaril and that the Drs wont listen to him because he knows best. Pt accepted his 5270 but refused to sign. He states the Dr told me that if I dont hit my head I can get out of here. Pt seemed to relax after med pass and is currently sleeping without issue. Plan: Patient reports that his voices have lessened, but he is still needing medication adjustments. Plan to remain free from self- harm per shift. Patient LOS.
[2023-03-27 07:38] VITALS: RESP 14; O2SAT 98
[2023-03-27 08:00] VITALS: BP 114/75; PULSE 68; RESP 16; TEMP 97.8; O2SAT 99
[2023-03-27] MEDS: olanzapine 10mg tablet PO SCH ×3 (08:38→19:25)
[2023-03-27] MEDS: busPIRone 15mg tablet PO SCH ×3 (08:39→20:23)
[2023-03-27] MEDS: benztropine 1mg tablet PO SCH ×2 (08:39→20:22)
[2023-03-27] MEDS: propranolol 10mg tablet PO SCH ×2 (08:39→20:23)
[2023-03-27] MEDS: lactose-reduced food (Ensure Enlive) - 237ml bottle PO SCH (08:44)
[2023-03-27] MEDS ORDERED: diphenhydrAMINE 25mg capsule PO ONE (13:05)
[2023-03-27] MEDS ORDERED: LORazepam 2 mg/ml vial ONE (13:23)
[2023-03-27] MEDS ORDERED: haloperidol lactate 5mg/ml inj ONE (13:23)
[2023-03-27] MEDS ORDERED: diphenhydrAMINE 50 mg/ml inj ONE (13:24)
[2023-03-27] MEDS: quetiapine 100mg tablet PO SCH ×2 (16:21→20:25)
--- NOTE | 2023-03-27 17:13 | NUR ---
Danger to self:[y] Danger to others:[] Alternatives Attempted(Document Y for the alternatives attempted). Decrease stimuli:[y] Diversional activities:[y] Verbal limit setting:[y] Medication:[y] Reality orientation:[y] Show of support:[y] Problem solving:[y] De-escalation:[y] Food and fluids:[y] Increased observation:[] Other:[] Behavioral Description(narrative of circumstances that led to use of S/R): This nurse was standing at the door talking to patient. He was explaining that he was having thoughts of hitting his head on the wall. This nurse turned to go find a PRN for patient, when he commenced banging his head. He was restrained by staff at 1315 until security arrived. he was then taken to the seclusion room by security and placed in 4 point restraints at 1320. Orders received for Ativan 2mg, Benadryl 50mg, and Haldol 5mg all given IM. Patient struggled for a few minutes, but soon realized he could not get out, so he decided on calmness. Medications Given:(medication name/time/route/location/effectiveness):[Haldol 5mg IM, Benadryl 50mg IM, Ativan 2mg IM. Patient Injuries Y/N(if Y,describe/actions taken/outcome):[Pt.'s had redness on his forehead. Neuro checks done and pt. has no s&s of injuries] Notifications. Provider/Guardian/conservator/Family/other/No one identified by patient to be notified:[y] Education. Education Topic for Seclusion and Behavioral Restraint(must educate each element and Document Y) Hospital policy:[y] Reason for seclusion or restraint:[y] Bx necessary for release:[y] Monitoring of patient/behavior:[y] Individual Taught(Document Y for individuals taught). Patient:[y] Family:[] Significant other:[] Barriers to Learning(Document Y for the barrier(s)identified). None Identified:[] Emotional Barriers:[y] Inability to Read:[] Islam Practices:[] Cognitive Impairment:[] Lack of Motivation:[] Language Barriers:[] Hearing:[] Cultural Practice:[] Other:[Psychosis] Teaching Method(Document Y for the method(s)utilized). Verbal:[y] Audio/Visual:[] Handouts:[] Demonstration:[] Other:[] Teaching Evaluation(Document Y for which response is applicable to patient). Verbalizes Understanding:[y] Needs Further Teaching:[y] Returns Demonstration:[] Needs Reinforcement:[y] Needs Practice:[] Needs Supervision:[] Addendum: 03/27/23 at 1731 by Adis Collins RN Disregard this note:
--- NOTE | 2023-03-27 17:35 | NUR ---
S/R Initiation (Y=yes; N=no) Date Seclusion/Behavioral Restraint Episode Began:[03/27/23] Time Seclusion/Behavioral Restraint Episode Began:[1315] Type of Restraint(Document Y for the type utilized) mechanical-4 point:[y] physical hold:[] seclusion:[] Behavior Necessitating Behavioral Restraint/Seclusion(Document Y for DTS and/or DTO). Danger to self:[y] Danger to others:[] Alternatives Attempted(Document Y for the alternatives attempted). Decrease stimuli:[y] Diversional activities:[y] Verbal limit setting:[y] Medication:[y] Reality orientation:[y] Show of support:[y] Problem solving:[y] De-escalation:[y] Food and fluids:[y] Increased observation:[] Other:[] Behavioral Description(narrative of circumstances that led to use of S/R): This nurse was standing at the door talking to patient. He was explaining that he was having thoughts of hitting his head on the wall. This nurse turned to go find a PRN for patient, when he commenced banging his head. He was restrained by staff at 1315 until security arrived. he was then taken to the seclusion room by security and placed in 4 point restraints at 1320. Orders received for Ativan 2mg, Benadryl 50mg, and Haldol 5mg all given IM. Patient struggled for a few minutes, but soon realized he could not get out, so he decided on calmness. Medications Given:(medication name/time/route/location/effectiveness):[Haldol 5mg IM, Benadryl 50mg IM, Ativan 2mg IM. Patient Injuries Y/N(if Y,describe/actions taken/outcome):[Pt.'s had redness on his forehead. Neuro checks done and pt. has no s&s of injuries] Provider/Guardian/conservator/Family/other/No one identified by patient to be notified:[y] Education. Education Topic for Seclusion and Behavioral Restraint(must educate each element and Document Y) Hospital policy:[y] Reason for seclusion or restraint:[y] Bx necessary for release:[y] Monitoring of patient/behavior:[y] Individual Taught(Document Y for individuals taught). Patient:[y] Family:[] Significant other:[] Barriers to Learning(Document Y for the barrier(s)identified). None Identified:[] Emotional Barriers:[y] Inability to Read:[] Mandaen Practices:[] Cognitive Impairment:[] Lack of Motivation:[] Language Barriers:[] Hearing:[] Cultural Practice:[] Other:[Psychosis] Teaching Method(Document Y for the method(s)utilized). Verbal:[y] Audio/Visual:[] Handouts:[] Demonstration:[] Other:[] Teaching Evaluation(Document Y for which response is applicable to patient). Verbalizes Understanding:[y] Needs Further Teaching:[y] Returns Demonstration:[] Needs Reinforcement:[y] Needs Practice:[] Needs Supervision:[]
--- NOTE | 2023-03-27 17:55 | NUR ---
NURSING PROGRESS NOTE Problem: Pt admitted on 5150 for DTS from our ER. Pt reported SI r/t severe AH, worsening the last 10-12 weeks. Pt punched right hand through a window, and hit his head against a refrigerator. Pt required 28 davon to right forearm. Pt states he does not want to harm himself, "I understand why people with voices kill themselves; to make it stop." Pt is seeking help. Pt has had prior SA via hangings (2010, 2012, 2018). Two resulted being on life support. Pt has history of PTSD, schizophrenia, bipolar and antisocial personality disorder. Interventions: Maintained a safe and supportive environment, provided clear and simple instructions, provided active listening and positive encouragement, ENCOURAGED patient to verbalize any increase in agitation or restlessness, bowel management, maintained LOS. Response: Patient woke soon after shift change. He begins his day by demanding he be started on Clozaril or be discharged. He did not eat breakfast, but drank his Ensure 100%. Patient was compliant with medications. He spent the morning in his room working out some way to get out of here. At ~1300, he says he feels like banging his head on the wall. As soon as I leave to get him A PRN he starts banging his head. We puts hands on him at 1315 to prevent any more harm, then once security arrived he was taken to seclusion room and placed in 4 point restraints. Order received from Michelle FERRO for B-52, Ativan 2mg, Haldol 5mg, and Benadryl 50mg all IM. Patient did not struggle after intervention and calmed quickly. At 1430 he was able to contract for safety and was released from restrints. Patient was led back to his room where he remained calm for the rest of this shift. Plan: Patient reports that his voices have lessened, but he is still needing medication adjustments. Plan to remain free from self- harm per shift. Patient removed from LOS.
[2023-03-27 19:00] VITALS: BP 120/82; PULSE 80; RESP 16; TEMP 98.6; O2SAT 97
[2023-03-27] MEDS: polyethylene glycol 3350 17gm powd pack PO SCH (20:23)
[2023-03-27] MEDS: mirtazapine 15mg tablet PO SCH (20:24)
[2023-03-27] MEDS: gabapentin 300mg capsule PO SCH (20:24)
[2023-03-27] MEDS: sennosides/docusate sodium tablet PO SCH (20:24)
[2023-03-27] MEDS: Melatonin 3mg tablet PO SCH (20:25)
[2023-03-27] MEDS ORDERED: divalproex 250mg tablet, delayed-release PO ONE ×2 (20:35→20:50)
[2023-03-27] MEDS ORDERED: quetiapine 100mg tablet PO SCH (21:00)
[2023-03-27] MEDS: OLANZAPINE 5 MG TABLET PO SCH (21:51)
[2023-03-27] MEDS: divalproex 250mg tablet, delayed-release PO SCH (21:51)
--- NOTE | 2023-03-28 04:12 | NUR ---
RN PROGRESS NOTE: LEGAL HOLD: 5270 for DTS PROBLEM: Admitted for worsening command auditory hallucinations that led him to put his arm through a window and repeatedly bang his head. Suicidal with prior highly lethal attempts. SA via hangings (2010, 2012, 2018). Two resulted in being on life support. Pt has history of PTSD, schizophrenia, bipolar and antisocial personality disorder. INTERVENTIONS: Maintained a safe and supportive environment, provided clear and simple instructions, provided active listening and positive encouragement, patient to verbalize any increase in agitation or restlessness, bowel management, maintained LOS. RESPONSE: Client was sitting in his room at [facility]. He has a large contusion on his forehead and both eye's are blackened. He stated "I've been punching myself in the face" "I have to do it." He wants to be discharged and stated "I have family and friends that support me, and an apartment, and I see a Counselor." He reports that it is hard to go for any length of time without hurting himself. Client believe's the Government is poisoning his food because of past crimes and threats he has made to police. These threats were made 12 years ago. This RN informed him self-injurious behavior complicates his discharge plan. Affect and mood are anxious and depressed. Took PM meds. Cooperative. PLAN: Patient continues to have severe intermittent CAH to harm himself. Plan to remain free from self- harm per shift. Patient removed from LOS today.
[2023-03-28 07:00] VITALS: RESP 14; O2SAT 98
[2023-03-28 08:00] VITALS: BP 109/69; PULSE 69; RESP 16; TEMP 97.4; O2SAT 98
[2023-03-28] MEDS: olanzapine 10mg tablet PO SCH ×2 (08:16→12:30)
[2023-03-28] MEDS: busPIRone 15mg tablet PO SCH ×3 (08:16→20:02)
[2023-03-28] MEDS: benztropine 1mg tablet PO SCH ×2 (08:16→20:02)
[2023-03-28] MEDS: divalproex 250mg tablet, delayed-release PO SCH ×2 (08:16→16:35)
[2023-03-28] MEDS: propranolol 10mg tablet PO SCH ×2 (08:16→20:01)
[2023-03-28] MEDS: lactose-reduced food (Ensure Enlive) - 237ml bottle PO SCH (08:22)
[2023-03-28] MEDS: hydrOXYzine 25 MG tablet PO PRN (12:30)
[2023-03-28] MEDS ORDERED: QUEtiapine 25mg tablet PO STA (13:31)
[2023-03-28] MEDS ORDERED: LORazepam 1 MG tablet PO ONE (13:35)
[2023-03-28] MEDS ORDERED: quetiapine 100mg tablet PO STA (13:36)
[2023-03-28] MEDS: quetiapine 100mg tablet PO SCH (15:11)
[2023-03-28] MEDS ORDERED: CARIPRAZINE 1.5 MG CAPSULE PO ONE (16:00)
--- NOTE | 2023-03-28 17:29 | NUR ---
NURSING PROGRESS NOTE Problem: Pt admitted on 5150 for DTS from our ER. Pt reported SI r/t severe AH, worsening the last 10-12 weeks. Pt punched right hand through a window, and hit his head against a refrigerator. Pt required 28 davon to right forearm. Pt states he does not want to harm himself, "I understand why people with voices kill themselves; to make it stop." Pt is seeking help. Pt has had prior SA via hangings (2010, 2012, 2018). Two resulted being on life support. Pt has history of PTSD, schizophrenia, bipolar and antisocial personality disorder. Interventions: Maintained a safe and supportive environment, provided clear and simple instructions, provided active listening and positive encouragement, ENCOURAGED patient to verbalize any increase in agitation or restlessness, bowel management, maintained LOS. Response: Patient woke up for breakfast, but found the only thing on his tray that he could eat was 2 protein shakes. One was warm, so it is in the refrigerator for later. Patient compliant with medications. After breakfast he relaxed on his bed until morning snack time. Patient then showered and shaved. It seemed like he was going to have a good day until after lunch, he started saying he was going to start banging his head on the wall. He was able to See Dr. Mcdonald, who changed and added medications. Patient was medicated and ended up calm all day. He is happy with changes. Patient started Vraylar today versus Clozapine and all of its side effects. He can later have his PMD start him on Clozapine if Vraylar fails. Plan: Patient reports that his voices have lessened, but he is still needing medication adjustments. Plan to remain free from self- harm per shift. Patient removed from LOS.
[2023-03-28] MEDS ORDERED: olanzapine 10mg tablet PO SCH (17:30)
[2023-03-28 19:00] VITALS: RESP 18; O2SAT 98
[2023-03-28 19:04] VITALS: BP 111/75; PULSE 96; RESP 18; TEMP 97.6; O2SAT 98
[2023-03-28] MEDS: OLANZAPINE 5 MG TABLET PO SCH (20:01)
[2023-03-28] MEDS: sennosides/docusate sodium tablet PO SCH (20:01)
[2023-03-28] MEDS: mirtazapine 15mg tablet PO SCH (20:01)
[2023-03-28] MEDS: Melatonin 3mg tablet PO SCH (20:02)
[2023-03-28] MEDS: polyethylene glycol 3350 17gm powd pack PO SCH (20:02)
[2023-03-28] MEDS: gabapentin 300mg capsule PO SCH (20:02)
--- NOTE | 2023-03-28 23:33 | NUR ---
NURSING PROGRESS NOTE Problem: Pt admitted on 5150 for DTS from our ER. Pt reported SI r/t severe AH, worsening the last 10-12 weeks. Pt punched right hand through a window, and hit his head against a refrigerator. Pt required 28 davon to right forearm. Pt states he does not want to harm himself, "I understand why people with voices kill themselves; to make it stop." Pt is seeking help. Pt has had prior SA via hangings (2010, 2012, 2018). Two resulted being on life support. Pt has history of PTSD, schizophrenia, bipolar and antisocial personality disorder. Interventions: Maintained a safe and supportive environment, provided clear and simple instructions, provided active listening and positive encouragement, ENCOURAGED patient to verbalize any increase in agitation or restlessness. Response: Patient resting in bed at the start of the shift. He awoke easily for 1:1 and medications. He reports still hearing voices, but he states they are decreased from admission. He continues to report anxiety surrounding the voices. We went over the changes made to his meds today, and he verbalized understanding. He continues to endorse passive thoughts of S/I of "just not wanting to wake up." Denies any side effects to meds. Affect was depressed, eye contact fair, hygiene and grooming good. No self harm behavior this shift. Plan: Patient reports that his voices have lessened, but he is still needing medication adjustments. Plan to remain free from self- harm per shift.
[2023-03-29 07:00] VITALS: RESP 17; O2SAT 97
[2023-03-29 08:00] VITALS: BP 104/63; PULSE 71; RESP 17; TEMP 98.1; O2SAT 97
[2023-03-29] MEDS ORDERED: CARIPRAZINE 1.5 MG CAPSULE PO SCH (08:00)
[2023-03-29] MEDS: lactose-reduced food (Ensure Enlive) - 237ml bottle PO SCH ×2 (08:00→08:36)
[2023-03-29] MEDS: propranolol 10mg tablet PO SCH ×2 (08:27→20:10)
[2023-03-29] MEDS: busPIRone 15mg tablet PO SCH ×3 (08:27→20:10)
[2023-03-29] MEDS: benztropine 1mg tablet PO SCH (08:27)
[2023-03-29] MEDS: divalproex 250mg tablet, delayed-release PO SCH ×2 (08:28→17:31)
[2023-03-29] MEDS: magnesium hydroxide 30ml (MOM) UD suspension PO PRN (10:58)
[2023-03-29] MEDS: hydrOXYzine 25 MG tablet PO PRN ×2 (11:00→18:22)
[2023-03-29] MEDS ORDERED: benztropine 1mg tablet PO PRN (16:45)
[2023-03-29] MEDS ORDERED: CARIPRAZINE 1.5 MG CAPSULE PO ONE (17:00)
[2023-03-29] MEDS ORDERED: quetiapine 100mg tablet PO SCH ×2 (17:30→21:00)
--- NOTE | 2023-03-29 18:03 | NUR ---
NURSING PROGRESS NOTE: Delfino Problem: Pt admitted on 5150 for DTS from our ER. Pt reported SI r/t severe AH, worsening the last 10-12 weeks. Pt punched right hand through a window, and hit his head against a refrigerator. Pt required 28 davon to right forearm. Pt states he does not want to harm himself, "I understand why people with voices kill themselves; to make it stop." Pt is seeking help. Pt has had prior SA via hangings (2010, 2012, 2018). Two resulted being on life support. Pt has history of PTSD, schizophrenia, bipolar and antisocial personality disorder. Interventions: Maintained a safe and supportive environment, provided clear and simple instructions, provided active listening and positive encouragement, ENCOURAGED patient to verbalize any increase in agitation or restlessness, bowel management, maintained LOS. Response: Received Pt in bed sleeping w/o distress at the beginning of this shift. Pt woke and was cooperative with vitals. Pt took AM meds after opening them in front of him at his request and talking about the purpose of each. Overall pleasant and talkative during assessments. Pt talked about his issues with the law and that the government is after him and does not like him. I would come home and things were moved, They put things in my oranges and I couldnt go to the bathroom. Pt ate breakfast well as well as lunch. Pt became increasingly anxious in late morning and received Atarax prn and MOM for constipation per Pt. He responded well to verbal intervention and assurance that he would be able to speak with psychiatrist today and adjust meds. Pt spoke with Dr Pompa in afternoon and med adjustments were made and a written list of meds and times were given to him. Pt received and took w/o issue the afternoon med changes. Pt thankful and agreeable to help being offered. Plan: Patient reports that his voices have lessened, but he is still needing medication adjustments. Plan to remain free from self- harm per shift.
[2023-03-29] MEDS ORDERED: LORazepam 1 MG tablet PO ONE (18:30)
[2023-03-29 20:00] VITALS: BP 120/80; RESP 16
[2023-03-29] MEDS: docusate sod 100mg capsule PO SCH (20:10)
[2023-03-29] MEDS: sennosides/docusate sodium tablet PO SCH (20:10)
[2023-03-29] MEDS: Melatonin 3mg tablet PO SCH (20:10)
[2023-03-29] MEDS: gabapentin 300mg capsule PO SCH (20:10)
[2023-03-29] MEDS: mirtazapine 15mg tablet PO SCH (20:10)
[2023-03-29] MEDS: polyethylene glycol 3350 17gm powd pack PO SCH (20:11)
--- NOTE | 2023-03-29 22:59 | NUR ---
NURSING PROGRESS NOTE: Delfino Problem: Pt admitted on 5150 for DTS from our ER. Pt reported SI r/t severe AH, worsening the last 10-12 weeks. Pt punched right hand through a window, and hit his head against a refrigerator. Pt required 28 davon to right forearm. Pt states he does not want to harm himself, "I understand why people with voices kill themselves; to make it stop." Pt is seeking help. Pt has had prior SA via hangings (2010, 2012, 2018). Two resulted being on life support. Pt has history of PTSD, schizophrenia, bipolar and antisocial personality disorder. Interventions: Maintained a safe and supportive environment, provided clear and simple instructions, provided active listening and positive encouragement, ENCOURAGED patient to verbalize any increase in agitation or restlessness, bowel management, maintained LOS. Response: Received Pt resting in bed. Pt was cooperative with care. Pt states that he has both intrusive thoughts and thoughts of harming himself. He states I want to bang my head because I want the voices to stop. I feel like the thoughts are in my head and they wont go away. Pt took all HS medications without issue, appears depressed, fair eye contact. Pt was observed to be talking on the phone with his mother. Pt isolated all evening in his room. Declined snacks. Pt appears to be sleeping, will continue to monitor. No self-harming this NOC shift. Plan: Patient reports that his voices have lessened, but he is still needing medication adjustments. Plan to remain free from self- harm per shift.
[2023-03-30 07:00] VITALS: BP 117/74; PULSE 72; RESP 14; TEMP 98.1; O2SAT 98
[2023-03-30] MEDS ORDERED: CARIPRAZINE 1.5 MG CAPSULE PO SCH (08:00)
[2023-03-30] MEDS: busPIRone 15mg tablet PO SCH ×2 (08:28→12:12)
[2023-03-30] MEDS: propranolol 10mg tablet PO SCH (08:28)
[2023-03-30] MEDS: docusate sod 100mg capsule PO SCH (08:28)
[2023-03-30] MEDS: divalproex 250mg tablet, delayed-release PO SCH (08:29)
[2023-03-30 12:10] VITALS: BP 123/82; PULSE 85
[2023-03-30] MEDS ORDERED: propranolol 10mg tablet PO SCH (13:00)
[2023-03-30] MEDS ORDERED: magnesium citrate 296ml oral solution PO ONE (13:30)
--- NOTE | 2023-03-30 13:38 | NUR ---
5270 for GD released
[2023-03-30] MEDS ORDERED: DIVA250T4 PO (13:53)
[2023-03-30] MEDS ORDERED: BUS15T PO (13:53)
[2023-03-30] MEDS ORDERED: MIRT-92 PO (13:53)
[2023-03-30] MEDS ORDERED: CARI1.5C PO (13:53)
[2023-03-30] MEDS ORDERED: PROP10TA10 PO (13:53)
[2023-03-30] MEDS ORDERED: HYDR-3686 PO (13:53)
[2023-03-30] MEDS ORDERED: MELA3TAB39 PO (13:53)
[2023-03-30] MEDS ORDERED: GABA300C PO (13:53)
[2023-03-30] MEDS ORDERED: QUET100T34 PO ×2 (13:54)
--- NOTE | 2023-03-30 14:25 | NUR ---
DISCHARGE NOTE: Pt discharged to home, pt walked out of the hospital. Pt discharged with all belongings and valuables. RN went over discharge paperwork with pt including firearms restriction, emergency phone numbers, and discharge medications along with f/u plan. Pt signed all paperwork. Pt denies SI/HI and AVH. Pt is A&O X4 and in no apparent distress.
== END 2023-03-30 14:25 | disposition home or self-care (01) | DRG 750 ==
LOC: ER 16:25 → ED HOLD 03-10 14:30 → ADULT MH 03-10 15:45
PROVIDERS: ADMIT Psychiatry & Neurology Psychiatry; ATTEND Psychiatry & Neurology Psychiatry
PROC: 0HQDXZZ Repair Right Lower Arm Skin, External Approach (ICD-10-PCS; principal; 2023-03-08)
DX: F20.0 Paranoid schizophrenia (principal); R45.851 Suicidal ideations; E87.1 Hypo-osmolality and hyponatremia; D72.829 Elevated white blood cell count, unspecified; E87.6 Hypokalemia; S51.821A Laceration with foreign body of right forearm, initial encounter; F17.200 Nicotine dependence, unspecified, uncomplicated; F31.9 Bipolar disorder, unspecified; F43.10 Post-traumatic stress disorder, unspecified; S00.81XA Abrasion of other part of head, initial encounter; K57.90 Diverticulosis of intestine, part unspecified, without perforation or abscess without bleeding; K59.09 Other constipation; Z20.822 Contact with and (suspected) exposure to COVID-19; F60.2 Antisocial personality disorder; N28.9 Disorder of kidney and ureter, unspecified; M79.5 Residual foreign body in soft tissue; X78.0XXA Intentional self-harm by sharp glass, initial encounter; Z91.51 Personal history of suicidal behavior; Z79.899 Other long term (current) drug therapy; Z81.8 Family history of other mental and behavioral disorders; Z88.8 Allergy status to other drugs, medicaments and biological substances; Z91.011 Allergy to milk products; Z86.19 Personal history of other infectious and parasitic diseases; Y93.89 Activity, other specified; Y92.89 Other specified places as the place of occurrence of the external cause; Y99.8 Other external cause status
CPT/HCPCS: 12035; 36415; 70450; 73090; 80048; 80053; 80305; 80320; 80346; 84443; 85025; 86704; 86705; 87081; 87340; 87811; 90471; 90715; 96365; 96366; 96372; 96375; 99284; 99285; A6223; A6253; A6258; A6446; A6449; J0515; J0690; J1200; J1630; J2060; J2274; J2405; J3490; J7030; Q0163; Q0177

== ENCOUNTER 2023-04-21 16:43 | Emergency (ER) | payer MEDICAID ==
[~2023-04-21] VITALS: Ht 165.1 cm; Wt 90.0 kg
[~2023-04-21 16:43] MED LIST changes: +BUS15T PO; +CARI1.5C PO; -CLON-528 PO; +DIVA250T4 PO; +GABA300C PO; +HYDR-3686 PO; +MELA3TAB39 PO; +MIRT-92 PO; +PROP10TA10 PO; -QUET-1 PO; +QUET100T34 PO; -QUET50TA PO
[2023-04-21 16:54] VITALS: TEMP 97.8
--- NOTE | 2023-04-21 17:10 | NUR ---
Christina dent in ED - 04/21/23 at 1721 by OPAL PER [facility] PT IS VIOLENT AND HAS BEEN COMBATIVE ON [facility] AND IN OVERFLOW IN PAST
[2023-04-21 17:59] LABS: BASOPHILS % (AUTO) 0.3 % (0-1); EOSINOPHILS % (AUTO) 0.1 % (0-6); HEMATOCRIT 41.1 % (42.0-52.0); HEMOGLOBIN 14.5 g/dl (14.0-17.9); LYMPHOCYTES # (AUTO) 1.4 X10'3 (1.1-4.8); LYMPHOCYTES % (AUTO) 15.5 % (21-51); MEAN CORPUSCULAR HGB CONC 35.2 g/dL (33.0-36.5); MEAN PLATELET VOLUME 7.7 FL (7.4-10.4); MONOCYTES # (AUTO) 0.8 X10'3 (0-0.9); NEUTROPHILS # (AUTO) 6.6 X10'3 (1.8-7.7); NEUTROPHILS % (AUTO) 75.1 % (42-75); PLATELET COUNT 219 X10'3 (140-440); RED BLOOD COUNT 4.68 X10'6 (4.70-6.10); RED CELL DISTRIBUTION WIDTH 13.5 % (11.5-14.5); WHITE BLOOD COUNT 8.8 X10'3 (4.5-11.0)
[2023-04-21 18:14] LABS: ALANINE AMINOTRANSFERASE 19 U/L (12-78); ALBUMIN 3.4 G/DL (3.4-5.0); ALKALINE PHOSPHATASE 61 IU/L (46-116); ANION GAP 7 (8-16); ASPARTATE AMINO TRANSFERASE 15 U/L (10-37); BILIRUBIN,TOTAL 0.4 MG/DL (0.1-1.0); BLOOD UREA NITROGEN 11 MG/DL (7-18); BUN/CREATININE RATIO 10.8 (10.0-20.0); CALCIUM 8.7 MG/DL (8.5-10.1); CHLORIDE 94 MMOL/L (99-107); CREATININE 1.02 MG/DL (0.60-1.10); GLUCOSE 99 MG/DL (70-104); POTASSIUM 4.1 MMOL/L (3.5-5.1); SODIUM 129 MMOL/L (135-145); TOTAL CARBON DIOXIDE 27.9 MMOL/L (24-32); TOTAL PROTEIN 6.7 G/DL (6.4-8.2); eCRCL 80 ML/MIN; eGFR 79 ML/MIN
[2023-04-21 18:21] LABS: ETHANOL < 10 MG/DL (<10); SALICYLATE 0.5 MG/DL (4.0-20.0); THYROID STIMULATING HORMONE 1.58 ulU/ml (0.34-4.50)
[2023-04-21 18:24] LABS: ACETAMINOPHEN < 2.0 UG/ML (10-30)
--- NOTE | 2023-04-21 19:54 | NUR ---
Received pt from ER. Pt lying in bed supine. Pt calm and fatigued. No s/s of distress. Respirations even and unlabored.
--- NOTE | 2023-04-21 19:56 | NUR ---
pt denies any pain at this time.
--- NOTE | 2023-04-21 22:02 | NUR ---
Pt lying in bed supine snoring. Respirations even and unlabored. No s/s of distress.
[2023-04-22 00:52] LABS: BILIRUBIN,URINE NEGATIVE (Neg); CLARITY,URINE CLEAR (Clear); COLOR,URINE YELLOW (Yellow); GLUCOSE, URINE NEGATIVE (Neg); KETONES,URINE TRACE mg/dl (Neg); LEUKOCYTE ESTERASE ,URINE NEGATIVE (Neg); NITRITES, URINE NEGATIVE (Neg); OCCULT BLOOD,URINE NEGATIVE (Neg); PH,URINE 6.5 (4.8-8.0); PROTEIN,URINE NEGATIVE (Neg); UROBILINOGEN,URINE 0.2 E.U/dL (0.2-1.0)
[2023-04-22 00:54] LABS: UA COLLECTION TYPE CLN CATCH MIDSTREAM
[2023-04-22 01:06] LABS: URINE AMPHETAMINE SCREEN NEGATIVE (Neg); URINE BARBITUATE SCREEN NEGATIVE (Neg); URINE BENZODIAZEPINES SCREEN POSITIVE (Neg); URINE CANNABINOID SCREEN NEGATIVE (Neg); URINE COCAINE SCREEN NEGATIVE (Neg); URINE METHADONE SCREEN NEGATIVE (Neg); URINE OPIATE SCREEN NEGATIVE (Neg); URINE PHENCYCLIDINE SCREEN NEGATIVE (Neg)
[2023-04-22 05:44] VITALS: BP 105/63; PULSE 70; O2SAT 99
--- NOTE | 2023-04-22 06:28 | NUR ---
Patient is awake and asked RN if he could have his meals prepackaged. RN advised she will look into that. Patient is not laying supine in his bed. Continue to monitor.
[2023-04-22] MEDS ORDERED: MIRT-87 PO (06:54)
[2023-04-22] MEDS ORDERED: QUET-1 PO (06:54)
[2023-04-22] MEDS ORDERED: DIVA-74 PO (06:54)
[2023-04-22] MEDS ORDERED: ESZO2TAB31 PO (06:54)
[2023-04-22] MEDS ORDERED: BUS15T PO (06:54)
[2023-04-22] MEDS ORDERED: PROP10TA10 PO (06:54)
[2023-04-22] MEDS ORDERED: OLAN10TA73 PO (06:54)
[2023-04-22] MEDS ORDERED: CARI1.5C PO (06:54)
[2023-04-22] MEDS ORDERED: HYDR-3686 PO (06:54)
[2023-04-22] MEDS ORDERED: hydrOXYzine 25 MG tablet PO PRN (07:25)
[2023-04-22] MEDS ORDERED: busPIRone 15mg tablet PO SCH (08:00)
[2023-04-22] MEDS ORDERED: propranolol 10mg tablet PO SCH (08:00)
[2023-04-22] MEDS ORDERED: CARIPRAZINE 1.5 MG CAPSULE PO SCH (08:00)
[2023-04-22] MEDS ORDERED: divalproex 250mg tablet, delayed-release PO SCH (08:00)
[2023-04-22 08:10] VITALS: RESP 16
--- NOTE | 2023-04-22 08:11 | NUR ---
Patient eating his breakfast. All items are in sealed containers. No distress observed at this time. Continue to monitor.
--- NOTE | 2023-04-22 09:09 | NUR ---
Christina dent in [facility] - 04/22/23 at 0921 by BOYD Ayo PRASAD eval8
--- NOTE | 2023-04-22 09:09 | NUR ---
Ayo PRASAD, evaluating patient.
--- NOTE | 2023-04-22 10:35 | NUR ---
Patient is to be discharged. Patient calling friends to see if they can pick him up. States his mother has his keys and he will have to be taken to get her extra set so he can get the gomez to his place. Continue to monitor.
[2023-04-22] MEDS ORDERED: mirtazapine 15mg tablet PO SCH (21:00)
[2023-04-22] MEDS ORDERED: zolpidem 5mg tablet PO SCH (21:00)
[2023-04-22] MEDS ORDERED: quetiapine 100mg tablet PO SCH (21:00)
[2023-04-22] MEDS ORDERED: olanzapine 10mg tablet PO SCH (21:00)
== END 2023-04-22 12:00 | disposition home or self-care (01) ==
LOC: ER 16:43
DX: F23 Brief psychotic disorder (principal); Z20.822 Contact with and (suspected) exposure to COVID-19; F31.9 Bipolar disorder, unspecified; F15.90 Other stimulant use, unspecified, uncomplicated; Z88.8 Allergy status to other drugs, medicaments and biological substances; Z91.011 Allergy to milk products; Z79.899 Other long term (current) drug therapy
CPT/HCPCS: 36415; 70450; 72125; 80053; 80305; 80320; 80329; 81003; 84443; 85025; 87811; 99284

== ENCOUNTER 2023-05-12 00:18 | Emergency (ER) | payer MEDICAID ==
[~2023-05-12] VITALS: Ht 165.1 cm; Wt 73.3 kg
[~2023-05-12 00:18] MED LIST changes: +DIVA-74 PO; -DIVA250T4 PO; +ESZO2TAB31 PO; -GABA300C PO; -MELA3TAB39 PO; +MIRT-87 PO; -MIRT-92 PO; +OLAN10TA73 PO; +QUET-1 PO; -QUET100T34 PO
[2023-05-12 00:22] VITALS: TEMP 98
[2023-05-12 01:03] LABS: BILIRUBIN,URINE NEGATIVE (Neg); CLARITY,URINE CLEAR (Clear); COLOR,URINE STRAW (Yellow); GLUCOSE, URINE NEGATIVE (Neg); KETONES,URINE NEGATIVE (Neg); LEUKOCYTE ESTERASE ,URINE NEGATIVE (Neg); NITRITES, URINE NEGATIVE (Neg); OCCULT BLOOD,URINE NEGATIVE (Neg); PH,URINE 7.5 (4.8-8.0); PROTEIN,URINE NEGATIVE (Neg); UROBILINOGEN,URINE 0.2 E.U/dL (0.2-1.0)
[2023-05-12 01:06] LABS: UA COLLECTION TYPE CLN CATCH MIDSTREAM
[2023-05-12 01:08] LABS: BASOPHILS # (AUTO) 0.1 X10'3 (0-0.2); BASOPHILS % (AUTO) 0.7 % (0-1); EOSINOPHILS # (AUTO) 0.1 X10'3 (0-0.9); EOSINOPHILS % (AUTO) 0.8 % (0-6); HEMATOCRIT 41.5 % (42.0-52.0); HEMOGLOBIN 14.8 g/dl (14.0-17.9); LYMPHOCYTES # (AUTO) 2.4 X10'3 (1.1-4.8); LYMPHOCYTES % (AUTO) 28.2 % (21-51); MEAN CORPUSCULAR HEMOGLOBIN 31.5 PG (27.0-31.0); MEAN CORPUSCULAR HGB CONC 35.6 g/dL (33.0-36.5); MEAN CORPUSCULAR VOLUME 88.5 FL (78-98); MEAN PLATELET VOLUME 7.3 FL (7.4-10.4); MONOCYTES % (AUTO) 12.2 % (2-12); NEUTROPHILS # (AUTO) 4.9 X10'3 (1.8-7.7); NEUTROPHILS % (AUTO) 58.1 % (42-75); PLATELET COUNT 202 X10'3 (140-440); RED CELL DISTRIBUTION WIDTH 13.5 % (11.5-14.5); WHITE BLOOD COUNT 8.5 X10'3 (4.5-11.0)
[2023-05-12 01:09] LABS: URINE AMPHETAMINE SCREEN NEGATIVE (Neg); URINE BARBITUATE SCREEN NEGATIVE (Neg); URINE BENZODIAZEPINES SCREEN NEGATIVE (Neg); URINE CANNABINOID SCREEN NEGATIVE (Neg); URINE COCAINE SCREEN NEGATIVE (Neg); URINE METHADONE SCREEN NEGATIVE (Neg); URINE OPIATE SCREEN NEGATIVE (Neg); URINE PHENCYCLIDINE SCREEN NEGATIVE (Neg)
[2023-05-12 01:23] LABS: ALANINE AMINOTRANSFERASE 20 U/L (12-78); ALBUMIN 3.5 G/DL (3.4-5.0); ALKALINE PHOSPHATASE 63 IU/L (46-116); ANION GAP 8 (8-16); ASPARTATE AMINO TRANSFERASE 18 U/L (10-37); BILIRUBIN,TOTAL 0.4 MG/DL (0.1-1.0); BLOOD UREA NITROGEN 14 MG/DL (7-18); BUN/CREATININE RATIO 13.1 (10.0-20.0); CALCIUM 9.3 MG/DL (8.5-10.1); CHLORIDE 96 MMOL/L (99-107); CREATININE 1.07 MG/DL (0.60-1.10); GLUCOSE 96 MG/DL (70-104); POTASSIUM 3.7 MMOL/L (3.5-5.1); SODIUM 131 MMOL/L (135-145); eCRCL 76 ML/MIN; eGFR 75 ML/MIN
--- NOTE | 2023-05-12 01:43 | NUR ---
visitor that was at bedside left, pt within sight of this nurse while primary nurse is on break.
[2023-05-12 01:47] LABS: ETHANOL < 10 MG/DL (<10)
[2023-05-12] MEDS ORDERED: olanzapine 10mg tablet PO SCH ×2 (01:47→21:00)
[2023-05-12] MEDS ORDERED: diphenhydrAMINE 25mg capsule PO ONE (01:50)
[2023-05-12 02:20] LABS: FREE T4 (FREE THYROXINE) 0.78 NG/DL (0.73-1.40)
--- NOTE | 2023-05-12 02:20 | NUR ---
Patient rtranfered from room 14 to bed 23. Pt is here for AH to harm himself. Zyprexa given in main ED with fair results. Monitor for safety.
--- NOTE | 2023-05-12 02:22 | NUR ---
report called to [facility] nurse. pt moved to room 23 by tech
--- NOTE | 2023-05-12 04:44 | NUR ---
Patient sleeping, no distress.
[2023-05-12 05:34] VITALS: BP 132/78; PULSE 68; O2SAT 96
--- NOTE | 2023-05-12 05:50 | NUR ---
Pt resting comfortably in bed. Pt in NAD. Monitor for safety.
[2023-05-12] MEDS ORDERED: CLOZ25TA36 PO (06:32)
[2023-05-12] MEDS ORDERED: DIVA500T9 PO (06:32)
[2023-05-12] MEDS ORDERED: QUET400T13 PO (06:32)
--- NOTE | 2023-05-12 06:38 | NUR ---
Patient sleeping on his left side. Nonlabored respirations. No distress observed. Continue to monitor.
--- NOTE | 2023-05-12 06:40 | NUR ---
NIESHA faxed packet to [facility]
[2023-05-12] MEDS ORDERED: hydrOXYzine 25 MG tablet PO PRN (07:50)
[2023-05-12] MEDS ORDERED: clozapine 25mg tablet PO SCH (08:00)
[2023-05-12] MEDS ORDERED: propranolol 10mg tablet PO SCH (08:00)
--- NOTE | 2023-05-12 08:11 | NUR ---
Patient was given breakfast. Patient only ate the items that were sealed. RN ordered patient a late tray with sealed items. Continue to monitor.
[2023-05-12] MEDS: busPIRone 15mg tablet PO SCH ×2 (08:32→13:35)
[2023-05-12] MEDS: quetiapine 100mg tablet PO SCH ×2 (08:32→13:35)
--- NOTE | 2023-05-12 09:10 | NUR ---
Ayo PRASAD, evaluating patient. No distress observed. Continue to monitor.
--- NOTE | 2023-05-12 10:00 | NUR ---
Patient was not placed on a hold and patient has an appointment at 1500 with [facility]. He will be picked up from his house for this appointment. Ayo is arranging patient to be picked up by his mom after she gets off of work tonight at 1800. Continue to monitor.
--- NOTE | 2023-05-12 12:07 | NUR ---
RN placed patient's tray at his bedside. Patient looked at it and rolled over to go back to sleep. Continue to monitor.
[2023-05-12 12:47] VITALS: RESP 16
--- NOTE | 2023-05-12 13:38 | NUR ---
Patient ate his lunch. No distress observed. Continue to monitor.
--- NOTE | 2023-05-12 15:32 | NUR ---
Patient used phone to call his mom. Mom at work but left mom a message. patient to be discharged when mom arrives to pick up driver patient around 1814. Continue to monitor.
[2023-05-12] MEDS ORDERED: quetiapine 100mg tablet PO SCH (21:00)
[2023-05-12] MEDS ORDERED: mirtazapine 15mg tablet PO SCH (21:00)
[2023-05-12] MEDS ORDERED: divalproex sod 250mg ER (24-hour) tablet PO SCH (21:00)
== END 2023-05-12 17:47 | disposition home or self-care (01) ==
LOC: ER 00:19
DX: R45.851 Suicidal ideations (principal); Z20.822 Contact with and (suspected) exposure to COVID-19; F15.90 Other stimulant use, unspecified, uncomplicated; Z88.8 Allergy status to other drugs, medicaments and biological substances; Z91.011 Allergy to milk products; Z79.899 Other long term (current) drug therapy
CPT/HCPCS: 36415; 80053; 80305; 80320; 81003; 84439; 84443; 85025; 87811; 99285; Q0163

== ENCOUNTER 2023-05-25 18:25 | Emergency (ER) | payer MEDICAID ==
[~2023-05-25] VITALS: Ht 317.5 cm; Wt 170.0 kg
[~2023-05-25 18:25] MED LIST changes: -CARI1.5C PO; +CLOZ25TA36 PO; -DIVA-74 PO; +DIVA500T9 PO; -ESZO2TAB31 PO; +QUET400T13 PO
[2023-05-25] MEDS ORDERED: TETanus/Pertussis (Acell)/Diphther VAC/PF (Tdap-Adult) 0.5ml syringe IMVAC ONE (19:10)
[2023-05-25 19:18] LABS: BASOPHILS % (AUTO) 0.6 % (0-1); EOSINOPHILS # (AUTO) 0.1 X10'3 (0-0.9); EOSINOPHILS % (AUTO) 0.9 % (0-6); HEMOGLOBIN 13.7 g/dl (14.0-17.9); LYMPHOCYTES % (AUTO) 25.3 % (21-51); MEAN CORPUSCULAR HEMOGLOBIN 31.3 PG (27.0-31.0); MEAN CORPUSCULAR VOLUME 89.4 FL (78-98); MEAN PLATELET VOLUME 8.3 FL (7.4-10.4); MONOCYTES % (AUTO) 12.4 % (2-12); NEUTROPHILS # (AUTO) 4.9 X10'3 (1.8-7.7); NEUTROPHILS % (AUTO) 60.8 % (42-75); PLATELET COUNT 222 X10'3 (140-440); RED BLOOD COUNT 4.37 X10'6 (4.70-6.10); RED CELL DISTRIBUTION WIDTH 13.5 % (11.5-14.5); WHITE BLOOD COUNT 8.1 X10'3 (4.5-11.0)
[2023-05-25 19:32] LABS: ALANINE AMINOTRANSFERASE 20 U/L (12-78); ALBUMIN 3.3 G/DL (3.4-5.0); ALBUMIN/GLOBULIN RATIO 1.1 (1.1-1.5); ALKALINE PHOSPHATASE 75 IU/L (46-116); ANION GAP 8 (8-16); ASPARTATE AMINO TRANSFERASE 23 U/L (10-37); BILIRUBIN,TOTAL 0.2 MG/DL (0.1-1.0); BLOOD UREA NITROGEN 16 MG/DL (7-18); BUN/CREATININE RATIO 15.2 (10.0-20.0); CALCIUM 8.3 MG/DL (8.5-10.1); CHLORIDE 98 MMOL/L (99-107); CREATININE 1.05 MG/DL (0.60-1.10); GLUCOSE 97 MG/DL (70-104); POTASSIUM 3.9 MMOL/L (3.5-5.1); SODIUM 132 MMOL/L (135-145); TOTAL CARBON DIOXIDE 25.6 MMOL/L (24-32); TOTAL PROTEIN 6.3 G/DL (6.4-8.2); eCRCL 77 ML/MIN; eGFR 76 ML/MIN
[2023-05-25 19:34] LABS: ETHANOL < 10 MG/DL (<10)
[2023-05-25 19:36] LABS: ACETAMINOPHEN < 2.0 UG/ML (10-30)
[2023-05-25 19:51] LABS: SALICYLATE 0.6 MG/DL (4.0-20.0)
--- NOTE | 2023-05-25 20:52 | NUR ---
Received patient to Ed-overflow bed 21. His mother is at bedside. Patient is pleasant, calm and cooperative. Will continue to monitor BP hourly r/t monitoring patient after taking too many meds prior to admission.
[2023-05-25] MEDS ORDERED: normal saline 1000ML IV soln IVB ONE (20:55)
[2023-05-25] MEDS ORDERED: HYDR50TA65 PO (21:02)
[2023-05-25] MEDS ORDERED: RISP4TAB73 PO (21:02)
[2023-05-25] MEDS ORDERED: DIVA500T9 PO (21:02)
[2023-05-25] MEDS ORDERED: MIRT-142 PO (21:07)
[2023-05-25] MEDS ORDERED: OLAN10TA3 PO (21:10)
[2023-05-25] MEDS ORDERED: PROP10TA10 PO (21:10)
[2023-05-25] MEDS ORDERED: QUET-1 PO (21:12)
[2023-05-25] MEDS ORDERED: BUS15T PO (21:22)
[2023-05-25] MEDS ORDERED: GABA600T13 PO (21:22)
[2023-05-25] MEDS ORDERED: QUET400T PO (21:24)
--- NOTE | 2023-05-25 21:30 | NUR ---
Gathered medication list from patient. Pleasant, calm and cooperative. Denies SI or desire to harm himself. Noted a large hematoma to forehead from patient banging his head repeatedly prior to coming to ER. Skin is red and intact. Denies need for pain medicine or desire for ice pack. Will continue to monitor.
--- NOTE | 2023-05-25 22:30 | NUR ---
Hourly blood pressures taken x 6 hours will be complete at 0030 05/26/23. VSS.
[2023-05-25 23:55] LABS: BILIRUBIN,URINE NEGATIVE (Neg); CLARITY,URINE CLEAR (Clear); COLOR,URINE YELLOW (Yellow); GLUCOSE, URINE NEGATIVE (Neg); KETONES,URINE TRACE mg/dl (Neg); LEUKOCYTE ESTERASE ,URINE NEGATIVE (Neg); NITRITES, URINE NEGATIVE (Neg); OCCULT BLOOD,URINE NEGATIVE (Neg); PROTEIN,URINE NEGATIVE (Neg); UROBILINOGEN,URINE 0.2 E.U/dL (0.2-1.0)
[2023-05-25 23:59] LABS: UA COLLECTION TYPE CLN CATCH MIDSTREAM
[2023-05-26] LABS: URINE AMPHETAMINE SCREEN NEGATIVE (Neg); URINE BARBITUATE SCREEN NEGATIVE (Neg); URINE BENZODIAZEPINES SCREEN POSITIVE (Neg); URINE CANNABINOID SCREEN NEGATIVE (Neg); URINE COCAINE SCREEN NEGATIVE (Neg); URINE METHADONE SCREEN NEGATIVE (Neg); URINE OPIATE SCREEN NEGATIVE (Neg); URINE PHENCYCLIDINE SCREEN NEGATIVE (Neg)
--- NOTE | 2023-05-26 00:41 | NUR ---
Patient up to BR to void. IV NS bolus infusing 1 liter then stop. Last set of vitals for hourly checks were are currently, BP 121/71. Dr. Myers made aware. Discontinued hourly checks. Resume qshift vital signs at 0500.
--- NOTE | 2023-05-26 03:16 | NUR ---
records faxed to [facility]
--- NOTE | 2023-05-26 03:39 | NUR ---
Patient is sleeping. No s/sx of acute distress noted. Will continue to monitor.
--- NOTE | 2023-05-26 05:39 | NUR ---
Patient sleeping. Appears to be comfortable resting on his right side. Will continue to monitor.
--- NOTE | 2023-05-26 06:52 | NUR ---
Patient sleeping on his left side. Respirations nonlabored. Continue to monitor.
--- NOTE | 2023-05-26 07:49 | NUR ---
PACKET FAXED TO [facility]
[2023-05-26] MEDS: hydrOXYzine 25 MG tablet PO SCH ×2 (08:48→20:32)
[2023-05-26] MEDS: propranolol 10mg tablet PO SCH ×2 (08:48→20:32)
[2023-05-26] MEDS: busPIRone 15mg tablet PO SCH ×2 (08:48→20:32)
[2023-05-26] MEDS: quetiapine 100mg tablet PO SCH (08:49)
--- NOTE | 2023-05-26 08:56 | NUR ---
Patient given breakfast tray. Patient asked RN for pre-packaged food. RN forgot that he is paranoid. Patient was drinking water from the pitcher without any problem. RN ordered a late tray and requested pre-packaged food. Continue to monitor.
--- NOTE | 2023-05-26 10:25 | NUR ---
Patient eatig breakfast. No distress observed. Continue to monitor.
--- NOTE | 2023-05-26 12:22 | NUR ---
Patient sleeping. No distress observed. Continue to monitor.
--- NOTE | 2023-05-26 12:40 | NUR ---
Patient eating his lunch. No distress observed. Continue to monitor.
--- NOTE | 2023-05-26 14:17 | NUR ---
Patient sleeping and then awoke and asked for bottled water. [employer] ordered bottled water from the kitchen. Continue to monitor.
--- NOTE | 2023-05-26 16:40 | NUR ---
Patient sitting up and eating some of his left over pre-packaged food. No distress observed. Continue to monitor.
--- NOTE | 2023-05-26 18:54 | NUR ---
The patient is up and pacing on the unit but cooperative with staff. He reports having a good appetite. He reports paranoia about the government putting "something" in his food. He reports "continuous" suicidal thoughts with a plan to to hang himself. HX of head banging but has not done that on the unit yet. He states he does that when he feels he is loosing control. When asked about voices he stated, "sometimes it feels that way". He is within eye sight of staff.
[2023-05-26] MEDS ORDERED: risperiDONE 2mg tablet PO SCH (21:00)
[2023-05-26] MEDS ORDERED: divalproex sod 250mg ER (24-hour) tablet PO SCH (21:00)
[2023-05-26] MEDS ORDERED: quetiapine 100mg tablet PO SCH (21:00)
[2023-05-26] MEDS ORDERED: mirtazapine 15mg tablet PO SCH (21:00)
[2023-05-26] MEDS ORDERED: olanzapine 10mg tablet PO SCH (21:00)
[2023-05-26] MEDS ORDERED: gabapentin 300mg capsule PO SCH (21:00)
--- NOTE | 2023-05-26 21:00 | NUR ---
The patient is laying quietly on his bed. He took his evening medications. He has had no agitated or self harm behaviors.
--- NOTE | 2023-05-26 23:03 | NUR ---
The patient appears to be sleeping
--- NOTE | 2023-05-27 00:47 | NUR ---
The patient appears to be sleeping
--- NOTE | 2023-05-27 03:12 | NUR ---
The patient appears to be sleeping
--- NOTE | 2023-05-27 05:09 | NUR ---
The patient appears to be sleeping
--- NOTE | 2023-05-27 05:15 | NUR ---
The patient reports cutting behaviors since age 8 and head banging as early as age 6. He also related that he has anorexia.
--- NOTE | 2023-05-27 06:49 | NUR ---
Patient sleeping supine. Nonlabored respirations. Continue to monitor.
--- NOTE | 2023-05-27 08:25 | NUR ---
Patient eating breakfast. No distress observed. Continue to monitor.
[2023-05-27] MEDS: busPIRone 15mg tablet PO SCH (08:47)
[2023-05-27] MEDS: quetiapine 100mg tablet PO SCH (08:48)
[2023-05-27] MEDS: propranolol 10mg tablet PO SCH (08:48)
[2023-05-27] MEDS: hydrOXYzine 25 MG tablet PO SCH (08:48)
--- NOTE | 2023-05-27 10:19 | NUR ---
Patient sleeping. No distress observed. Continue to monitor.
--- NOTE | 2023-05-27 12:29 | NUR ---
Patient eating lunch. No distress observed. Continue to monitor.
[2023-05-27] MEDS ORDERED: LORazepam 1 MG tablet PO ONE (12:40)
[2023-05-27] MEDS ORDERED: hydrOXYzine 25 MG tablet PO ONE (13:10)
--- NOTE | 2023-05-27 14:17 | NUR ---
Patient sleeping and gets up for BR break. No distress observed. Continue ot monitor.
[2023-05-27 14:28] LABS: COVID19 ID NOW NEGATIVE (Neg)
--- NOTE | 2023-05-27 17:01 | NUR ---
Patient should be leaving soon to [facility]. Patient is aware. [facility] to [facility].
[2023-05-27 17:18] VITALS: BP 100/72; PULSE 77; RESP 16; TEMP 98.6; O2SAT 99
== END 2023-05-27 17:35 | disposition still patient (30) ==
LOC: ER 18:25
DX: F22 Delusional disorders (principal); F31.9 Bipolar disorder, unspecified; F20.9 Schizophrenia, unspecified; F15.10 Other stimulant abuse, uncomplicated
CPT/HCPCS: 36415; 80053; 80305; 80320; 80329; 81003; 85025; 87635; 87811; 90471; 90715; 96360; 99285; C9803; J7030; Q0177

== ENCOUNTER 2023-07-04 00:04 | Emergency (ER) | payer MEDICAID ==
[~2023-07-04] VITALS: Ht 175.3 cm; Wt 84.1 kg
[~2023-07-04 00:04] MED LIST changes: -CLOZ25TA36 PO; +GABA600T13 PO; -HYDR-3686 PO; +HYDR50TA65 PO; +MIRT-142 PO; -MIRT-87 PO; +OLAN10TA3 PO; -OLAN10TA73 PO; -QUET-1 PO; +QUET400T PO; +RISP4TAB73 PO
[2023-07-04 03:08] LABS: BASOPHILS # (AUTO) 0.2 X10'3 (0-0.2); BASOPHILS % (AUTO) 1.9 % (0-1); EOSINOPHILS # (AUTO) 0.1 X10'3 (0-0.9); EOSINOPHILS % (AUTO) 0.5 % (0-6); HEMOGLOBIN 15.9 g/dl (14.0-17.9); LYMPHOCYTES # (AUTO) 3.6 X10'3 (1.1-4.8); LYMPHOCYTES % (AUTO) 35.1 % (21-51); MEAN CORPUSCULAR HEMOGLOBIN 31.5 PG (27.0-31.0); MEAN CORPUSCULAR HGB CONC 35.2 g/dL (33.0-36.5); MEAN CORPUSCULAR VOLUME 89.4 FL (78-98); MONOCYTES # (AUTO) 0.9 X10'3 (0-0.9); MONOCYTES % (AUTO) 8.9 % (2-12); NEUTROPHILS # (AUTO) 5.6 X10'3 (1.8-7.7); NEUTROPHILS % (AUTO) 53.6 % (42-75); PLATELET COUNT 281 X10'3 (140-440); RED BLOOD COUNT 5.04 X10'6 (4.70-6.10); RED CELL DISTRIBUTION WIDTH 14.2 % (11.5-14.5); WHITE BLOOD COUNT 10.4 X10'3 (4.5-11.0)
[2023-07-04 03:34] LABS: URINE AMPHETAMINE SCREEN NEGATIVE (Neg); URINE BARBITUATE SCREEN NEGATIVE (Neg); URINE BENZODIAZEPINES SCREEN POSITIVE (Neg); URINE CANNABINOID SCREEN NEGATIVE (Neg); URINE COCAINE SCREEN NEGATIVE (Neg); URINE METHADONE SCREEN NEGATIVE (Neg); URINE OPIATE SCREEN NEGATIVE (Neg); URINE PHENCYCLIDINE SCREEN NEGATIVE (Neg)
[2023-07-04 03:47] LABS: ALANINE AMINOTRANSFERASE 34 U/L (12-78); ALBUMIN 3.8 G/DL (3.4-5.0); ALKALINE PHOSPHATASE 76 IU/L (46-116); ANION GAP 10 (8-16); ASPARTATE AMINO TRANSFERASE 22 U/L (10-37); BILIRUBIN,TOTAL 0.3 MG/DL (0.1-1.0); BLOOD UREA NITROGEN 9 MG/DL (7-18); BUN/CREATININE RATIO 8.1 (10.0-20.0); CHLORIDE 103 MMOL/L (99-107); CREATININE 1.11 MG/DL (0.60-1.10); ETHANOL < 10 MG/DL (<10); GLUCOSE 102 MG/DL (70-104); POTASSIUM 3.5 MMOL/L (3.5-5.1); SODIUM 139 MMOL/L (135-145); TOTAL CARBON DIOXIDE 26.3 MMOL/L (24-32); TOTAL PROTEIN 7.6 G/DL (6.4-8.2); eCRCL 84 ML/MIN; eGFR 72 ML/MIN
[2023-07-04] MEDS ORDERED: QUET400T PO (05:42)
[2023-07-04] MEDS ORDERED: CARI3CAP PO (05:43)
[2023-07-04 08:11] LABS: BILIRUBIN,URINE NEGATIVE (Neg); CLARITY,URINE CLEAR (Clear); COLOR,URINE YELLOW (Yellow); GLUCOSE, URINE NEGATIVE (Neg); KETONES,URINE NEGATIVE (Neg); LEUKOCYTE ESTERASE ,URINE NEGATIVE (Neg); NITRITES, URINE NEGATIVE (Neg); OCCULT BLOOD,URINE NEGATIVE (Neg); PH,URINE 7.5 (4.8-8.0); PROTEIN,URINE NEGATIVE (Neg); UROBILINOGEN,URINE 0.2 E.U/dL (0.2-1.0)
[2023-07-04 08:24] LABS: UA COLLECTION TYPE URINAL
[2023-07-04] MEDS: CARIPRAZINE 1.5 MG CAPSULE PO SCH (08:52)
[2023-07-04] MEDS ORDERED: haloperidol lactate 5mg/ml inj IM ONE (19:35)
[2023-07-04] MEDS ORDERED: LORazepam 2 mg/ml vial IM ONE ×2 (19:35→20:35)
[2023-07-04] MEDS ORDERED: diphenhydrAMINE 50 mg/ml inj IM ONE ×2 (19:40→20:10)
[2023-07-04] MEDS ORDERED: benztropine 1 mg/ml 2ml ampule IV ONE (20:35)
[2023-07-04] MEDS ORDERED: benztropine 1 mg/ml 2ml ampule IM ONE (20:40)
[2023-07-04] MEDS: mirtazapine 15mg tablet PO SCH (21:17)
[2023-07-04] MEDS: olanzapine 10mg tablet PO SCH (21:18)
[2023-07-04] MEDS: quetiapine 100mg tablet PO SCH (21:18)
[2023-07-05] MEDS: CARIPRAZINE 1.5 MG CAPSULE PO SCH (08:30)
[2023-07-05] MEDS: LORazepam 1 MG tablet PO PRN (18:43)
[2023-07-05] MEDS: mirtazapine 15mg tablet PO SCH (20:08)
[2023-07-05] MEDS: quetiapine 100mg tablet PO SCH (20:08)
[2023-07-05] MEDS: olanzapine 10mg tablet PO SCH (20:08)
[2023-07-06] MEDS: CARIPRAZINE 1.5 MG CAPSULE PO SCH (08:35)
[2023-07-06] MEDS: LORazepam 1 MG tablet PO PRN ×3 (08:35→17:58)
[2023-07-06] MEDS: mirtazapine 15mg tablet PO SCH (20:04)
[2023-07-06] MEDS: olanzapine 10mg tablet PO SCH (20:04)
[2023-07-06] MEDS: quetiapine 100mg tablet PO SCH (20:05)
[2023-07-07 05:25] VITALS: BP 101/62; PULSE 89; TEMP 98.2; O2SAT 96
[2023-07-07] MEDS: CARIPRAZINE 1.5 MG CAPSULE PO SCH (08:41)
[2023-07-07] MEDS: LORazepam 1 MG tablet PO PRN ×2 (08:41→15:17)
[2023-07-07 08:53] VITALS: RESP 16
== END 2023-07-07 17:15 | disposition admitted as inpatient to this hospital (09) ==
LOC: ER 00:05
DX: R45.851 Suicidal ideations (principal); Z20.822 Contact with and (suspected) exposure to COVID-19; F20.9 Schizophrenia, unspecified; F31.9 Bipolar disorder, unspecified; F15.10 Other stimulant abuse, uncomplicated
CPT/HCPCS: 36415; 70450; 80053; 80305; 80320; 81003; 85025; 87811; 96372; 99285; J0515; J1200; J1630; J2060